=== PATIENT | female | born 1945 | race Caucasian/White ===

== ENCOUNTER → 2017-07-12 | Outpatient (CLI) | payer MEDICARE ==
--- NOTE | 2017-07-12 12:13 | US ---
EXAMINATION TYPE: US abdomen complete DATE OF EXAM: 07/12/2017 COMPARISON: NONE CLINICAL HISTORY: K81.0 Acute Cholecystitis. Cramping-pelvic, some nausea EXAM MEASUREMENTS: Liver Length: 15.4 cm Gallbladder Wall: 0.2 cm CBD: 0.5 cm Spleen: 8.6 cm Right Kidney: 10.5 x 3.9 x 4.8 cm Left Kidney: 9.3 x 3.4 x 4.8 cm Pancreas: wnl Liver: intercostal imaging due to bowel gas, wnl Gallbladder: wnl Evidence for sonographic Rdz's sign: no CBD: wnl Spleen: wnl Right Kidney: wnl Left Kidney: wnl Upper IVC: wnl Abd Aorta: wnl IMPRESSION: 1. Abdomen ultrasound as visualized is unremarkable.
== END | disposition home or self-care (01) ==
LOC: RADUSWWP 10:52
PROVIDERS: ATTEND Family Medicine
DX: K81.0 Acute cholecystitis (principal)
CPT/HCPCS: 76700

== ENCOUNTER 2017-07-21 11:42 | Emergency (ER) | payer MEDICARE ==
[2017-07-21 11:54] VITALS: RESP 18
[2017-07-21] MEDS ORDERED: ONDANSETRON 4 MG/2 ML VIAL IVP STA (12:12)
[2017-07-21] MEDS ORDERED: RX INFO: IV CONTRAST WAS GIVEN 1 EACH MISC MISCELLANE PRN (12:12)
[2017-07-21] MEDS ORDERED: SODIUM CHLORIDE 0.9% 1,000 ML IV STA (12:12)
[2017-07-21] MEDS ORDERED: MORPHINE SULFATE 2 MG/ML SYRINGE IVP STA (12:12)
--- NOTE | 2017-07-21 12:22 | ED ---
Abdominal Pain HPI - General Chief Complaint: Abdominal Pain Stated Complaint: Stomach cramping/nausea Time Seen by Provider: 07/21/17 11:56 Source: patient, RN notes reviewed, old records reviewed Mode of arrival: ambulatory Limitations: no limitations - History of Present Illness Initial Comments: Is a 71-year-old feel presenting to emergency Department chief complaint of 1 month of intermittent lower abdominal cramping, mainly right side. Patient reports that her primary care provider thinks is related to her gallbladder. She is oriented ultrasound which shows no evidence of stones. She reports that she had some blood work which showed some mildly elevated liver enzymes. Patient is supposed to have a HIDA scan. She also relates that she is going to have a colonoscopy in 9 days for further evaluation. Patient states that she's had no diarrhea, and has had very soft bowel movements. Patient reports she has a history of achalasia had multiple surgeries on her esophagus help dilate the esophageal sphincter. Patient states that she has a soft food and liquid diet. Denies any specific nausea or vomiting. States that she's had no fever or chill that she is aware. - Related Data Home Medications Medication Instructions Recorded Confirmed ALPRAZolam [Xanax] 0.5 mg PO HS 01/07/15 07/21/17 Escitalopram [Lexapro] 10 mg PO DAILY 01/07/15 07/21/17 Thyroid, Pork [[place] Thyroid] 30 mg PO DAILY 01/07/15 07/21/17 cycloSPORINE 0.05% OPHTH SOLN 1 applicator BOTH EYES Q12H 01/07/15 07/21/17 [Restasis 0.05% Ophth Soln] Dicyclomine [Bentyl] 10 mg PO AC-TID 07/21/17 07/21/17 Omeprazole 20 mg PO HS 07/21/17 07/21/17 Allergies Allergy/AdvReac Type Severity Reaction Status Date / Time adhesive AdvReac Unknown RED, Verified 07/21/17 12:20 IRRITATED SKIN Review of Systems ROS Statement: Those systems with pertinent positive or pertinent negative responses have been documented in the HPI. ROS Other: All systems not noted in ROS Statement are negative. Past Medical History Past Medical History: Asthma, Fibromyalgia, Osteoarthritis (OA), Thyroid Disorder Additional Past Medical History / Comment(s): HX OF SKIN CANCER, LOW BLOODPRESSURE WITH OCCASIONAL DIZZINESS UPON STANDING, HX OF ASTHMA(NO PROBLEM NOW), ACHALASIA OF ESOPHAGUS-SLEEPS WTIH THE HOB ELEVATED AND LIQUID MEALS ONLY. SJOGRENS SYNDROME , BACK PAIN. History of Any Multi-Drug Resistant Organisms: None Reported Past Surgical History: Breast Surgery, Tubal Ligation Additional Past Surgical History / Comment(s): CYST RT BREAST, ACHALASIA OF ESOPHAGUS SURGERY ON SPHINCTER. Past Anesthesia/Blood Transfusion Reactions: No Reported Reaction Additional Past Anesthesia/Blood Transfusion Reaction / Comment(s): PT STATES DUE TO ACHALASIA OF ESOPHAGUS -DR SAID HER HEAD WOULD BE ELEVATED DURING SURGERY. Past Psychological History: Depression Smoking Status: Never smoker Past Alcohol Use History: None Reported Past Drug Use History: None Reported - Past Family History Mother Family Medical History: Deep Vein Thrombosis (DVT) Brother(s) Family Medical History: Deep Vein Thrombosis (DVT) General Exam - General Exam Comments Initial Comments: This is a 71-year-old female. No acute distress. Limitations: no limitations General appearance: alert, in no apparent distress Head exam: Present: atraumatic, normocephalic, normal inspection Eye exam: Present: normal appearance, PERRL, EOMI. Absent: scleral icterus, conjunctival injection, periorbital swelling ENT exam: Present: normal exam, mucous membranes moist Neck exam: Present: normal inspection. Absent: tenderness, meningismus, lymphadenopathy Respiratory exam: Present: normal lung sounds bilaterally. Absent: respiratory distress, wheezes, rales, rhonchi, stridor Cardiovascular Exam: Present: regular rate, normal rhythm, normal heart sounds. Absent: systolic murmur, diastolic murmur, rubs, gallop, clicks GI/Abdominal exam: Present: soft, tenderness (RLQ tenderness), normal bowel sounds. Absent: distended, guarding, rebound, rigid Extremities exam: Present: normal inspection, full ROM, normal capillary refill. Absent: tenderness, pedal edema, joint swelling, calf tenderness Back exam: Present: normal inspection Neurological exam: Present: alert, oriented X3, CN II-XII intact Psychiatric exam: Present: normal affect, normal mood Skin exam: Present: warm, dry, intact, normal color. Absent: rash Course Vital Signs 07/21/17 11:51 Temperature 97.9 F Pulse Rate 75 Respiratory 18 Rate Blood Pressure 105/54 O2 Sat by Pulse 96 Oximetry Medical Decision Making - Medical Decision Making 2-year-old female chief complaint of intermittent right lower down quadrant abdominal pain. - Lab Data Result diagrams: 07/21/17 12:34 07/21/17 12:34 Lab Results 07/21/17 07/21/17 07/21/17 Range/Units 12:34 12:34 12:34 WBC 7.3 (3.8-10.6) k/uL RBC 4.91 (3.80-5.40) m/uL Hgb 14.2 (11.4-16.0) gm/dL Hct 41.4 (34.0-46.0) % MCV 84.2 (80.0-100.0) fL MCH 28.9 (25.0-35.0) pg MCHC 34.3 (31.0-37.0) g/dL RDW 13.1 (11.5-15.5) % Plt Count 339 (150-450) k/uL Neutrophils % 69 % Lymphocytes % 19 % Monocytes % 6 % Eosinophils % 2 % Basophils % 1 % Neutrophils # 5.0 (1.3-7.7) k/uL Lymphocytes # 1.4 (1.0-4.8) k/uL Monocytes # 0.4 (0-1.0) k/uL Eosinophils # 0.2 (0-0.7) k/uL Basophils # 0.1 (0-0.2) k/uL PT 10.5 (9.0-12.0) sec INR 1.0 (<1.2) APTT 23.6 (22.0-30.0) sec Sodium 142 (137-145) mmol/L Potassium 4.4 (3.5-5.1) mmol/L Chloride 105 (98-107) mmol/L Carbon Dioxide 27 (22-30) mmol/L Anion Gap 10 mmol/L BUN 21 H (7-17) mg/dL Creatinine 0.87 (0.52-1.04) mg/dL Est GFR (MDRD) Af Amer >60 (>60 ml/min/1.73 sqM) Est GFR (MDRD) Non-Af >60 (>60 ml/min/1.73 sqM) Glucose 87 (74-99) mg/dL Plasma Lactic Acid Thanh (0.7-2.0) mmol/L Calcium 9.4 (8.4-10.2) mg/dL Total Bilirubin 0.3 (0.2-1.3) mg/dL AST 28 (14-36) U/L ALT 30 (9-52) U/L Alkaline Phosphatase 113 (38-126) U/L Total Protein 6.5 (6.3-8.2) g/dL Albumin 3.8 (3.5-5.0) g/dL Amylase 39 (30-110) U/L Lipase 126 (23-300) U/L Urine Color Urine Appearance (Clear) Urine pH (5.0-8.0) Ur Specific Plush (1.001-1.035) Urine Protein (Negative) Urine Glucose (UA) (Negative) Urine Ketones (Negative) Urine Blood (Negative) Urine Nitrite (Negative) Urine Bilirubin (Negative) Urine Urobilinogen (<2.0) mg/dL Ur Leukocyte Esterase (Negative) 07/21/17 07/21/17 Range/Units 12:34 13:10 WBC (3.8-10.6) k/uL RBC (3.80-5.40) m/uL Hgb (11.4-16.0) gm/dL Hct (34.0-46.0) % MCV (80.0-100.0) fL MCH (25.0-35.0) pg MCHC (31.0-37.0) g/dL RDW (11.5-15.5) % Plt Count (150-450) k/uL Neutrophils % % Lymphocytes % % Monocytes % % Eosinophils % % Basophils % % Neutrophils # (1.3-7.7) k/uL Lymphocytes # (1.0-4.8) k/uL Monocytes # (0-1.0) k/uL Eosinophils # (0-0.7) k/uL Basophils # (0-0.2) k/uL PT (9.0-12.0) sec INR (<1.2) APTT (22.0-30.0) sec Sodium (137-145) mmol/L Potassium (3.5-5.1) mmol/L Chloride (98-107) mmol/L Carbon Dioxide (22-30) mmol/L Anion Gap mmol/L BUN (7-17) mg/dL Creatinine (0.52-1.04) mg/dL Est GFR (MDRD) Af Amer (>60 ml/min/1.73 sqM) Est GFR (MDRD) Non-Af (>60 ml/min/1.73 sqM) Glucose (74-99) mg/dL Plasma Lactic Acid Thanh 1.5 (0.7-2.0) mmol/L Calcium (8.4-10.2) mg/dL Total Bilirubin (0.2-1.3) mg/dL AST (14-36) U/L ALT (9-52) U/L Alkaline Phosphatase (38-126) U/L Total Protein (6.3-8.2) g/dL Albumin (3.5-5.0) g/dL Amylase (30-110) U/L Lipase (23-300) U/L Urine Color Yellow Urine Appearance Clear (Clear) Urine pH 7.0 (5.0-8.0) Ur Specific Plush 1.034 (1.001-1.035) Urine Protein Negative (Negative) Urine Glucose (UA) Negative (Negative) Urine Ketones Negative (Negative) Urine Blood Negative (Negative) Urine Nitrite Negative (Negative) Urine Bilirubin Negative (Negative) Urine Urobilinogen <2.0 (<2.0) mg/dL Ur Leukocyte Esterase Negative (Negative) - Radiology Data Radiology results: report reviewed CT abdomen and pelvis with contrast show some colonic diverticula most prominent sigmoid colon without evidence of acute diverticulitis. There is a 5 cm right adnexal or ovarian mass. This is an abnormal finding in a postmenopausal female. Neoplasm cannot be excluded. Further investigation with a nonemergent ultrasound follow-up is advised. Dilated debris-filled esophagus partially imaged could reflect products of achalasia. Other etiologies are not excluded. This was read by Dr. schuler. Disposition Clinical Impression: Ovarian mass, right, Abdominal cramping Disposition: HOME SELF-CARE Condition: Good Instructions: Abdominal Pain (ED), Ovarian Cyst (ED) Additional Instructions: She is advised to continue to take your Bentyl. Patient is to complete her colonoscopy in the next 9 days. Follow-up with her primary care provider or OB/ [facility] in regards to the right sided ovarian mass. Patient needs to have this closely followed up with. Return to the emergency department if any alarming signs or symptoms occur. Referrals: Wiley Sinha DO [Primary Care Provider] - 1-2 days Time of Disposition: 14:28
[2017-07-21 12:46] LABS: Basophils # (A) 0.1 k/uL (0-0.2); Basophils % (A) 1 %; CH 27.5; CHCM 32.8; Eosinophils # (A) 0.2 k/uL (0-0.7); Eosinophils % (A) 2 %; HCT 41.4 % (34.0-46.0); HDW 2.57; HGB 14.2 gm/dL (11.4-16.0); Luc # (Auto) 0.15; Luc % (Auto) 2; Lymphocytes # (A) 1.4 k/uL (1.0-4.8); Lymphocytes % (A) 19 %; MCH 28.9 pg (25.0-35.0); MCHC 34.3 g/dL (31.0-37.0); MCV 84.2 fL (80.0-100.0); Mean Platelet Volume 6.9; Monocytes # (A) 0.4 k/uL (0-1.0); Monocytes % (A) 6 %; Neutrophils % (A) 69 %; RBC 4.91 m/uL (3.80-5.40); RDW 13.1 % (11.5-15.5); WBC 7.3 k/uL (3.8-10.6); WBC (Perox) 7.24
[2017-07-21 12:56] LABS: Partial Thromboplastin Time 23.6 sec (22.0-30.0); Prothrombin Time 10.5 sec (9.0-12.0)
[2017-07-21 13:02] LABS: ALT 30 U/L (9-52); AST 28 U/L (14-36); Alkaline Phosphatase 113 U/L (38-126); Amylase 39 U/L (30-110); Anion Gap 10 mmol/L; Blood Urea Nitrogen 21 mg/dL (7-17); Calcium 9.4 mg/dL (8.4-10.2); Carbon Dioxide 27 mmol/L (22-30); Chloride 105 mmol/L (98-107); Glucose 87 mg/dL (74-99); Non-African American GFR(MDRD) >60 (>60 ml/min/1.73 sqM); Potassium 4.4 mmol/L (3.5-5.1); Sodium 142 mmol/L (137-145); Total Bilirubin 0.3 mg/dL (0.2-1.3); Total Protein 6.5 g/dL (6.3-8.2)
--- NOTE | 2017-07-21 13:29 | CT ---
EXAMINATION TYPE: CT abdomen pelvis w con DATE OF EXAM: 07/21/2017 HISTORY: Patient complains of generalized pelvic pain. CT DLP: 1161mGycm Automated Exposure Control for Dose Reduction was Utilized. CONTRAST: CT scan of the abdomen and pelvis is performed without oral but with IV Contrast, patient injected wi th 100 mL of Omnipaque 300. COMPARISON: Complete abdominal ultrasound 9 days ago.. FINDINGS: LUNG BASES: No significant abnormality is appreciated. LIVER/GB: Liver is hypodense relative to spleen suggesting fatty infiltration. PANCREAS: No significant abnormality is seen. SPLEEN: No significant abnormality is seen. ADRENALS: No significant abnormality is seen. KIDNEYS: No significant abnormality is seen. BOWEL: There is partial visualization of debris filled dilated distal esophagus. There is small size hiatal hernia. There is no suspicious small or large bowel dilatation. Occasional colonic diverticula are present without CT evidence for acute diverticulitis. UTERUS/ADNEXA: Uterus is anteverted in shape and within normal limits in size. In the right pelvis or ovary there is 5.0 x 3.4 cm oval hypodense lesion on axial image 68, this is abnormal finding in pos tmenopausal female and follow-up is advised. Remnant left ovary is normal in size near axial image 61 . LYMPH NODES: No greater than 1cm abdominal or pelvic lymph nodes are appreciated. OSSEOUS STRUCTURES: No significant abnormality is seen. OTHER: No significant additional abnormality is seen. IMPRESSION: 1. Some colonic diverticula most prominent at sigmoid colon without CT evidence for acute diverticuli tis. 2. There is 5.0 cm right adnexal or ovarian mass, this is abnormal finding in postmenopausal female, neoplasm cannot be excluded. Further investigation with nonemergent ultrasound follow-up is advised. 3. Dilated debris-filled esophagus partially imaged could reflect product of achalasia, other etiolog ies are not excluded. Clinical correlation advised.
[2017-07-21 13:54] LABS: Appearance,Urine Clear (Clear); Bilirubin,Urine Negative (Negative); Glucose,Urine (UA) Negative (Negative); Ketones,Urine Negative (Negative); Leukocyte Esterase,Urine Negative (Negative); Nitrite,Urine Negative (Negative); Protein,Urine Negative (Negative); Specific Gravity,Urine 1.034 (1.001-1.035); UA Billing (MACRO vs. MICRO) CHEM; Urobilinogen,Urine <2.0 mg/dL (<2.0)
[2017-07-21 14:52] VITALS: BP 100/53; PULSE 51; TEMP 98.4
== END 2017-07-21 14:52 | disposition home or self-care (01) ==
LOC: EC 11:42
DX: N83.9 Noninflammatory disorder of ovary, fallopian tube and broad ligament, unspecified (principal); E07.9 Disorder of thyroid, unspecified; F32.9 Major depressive disorder, single episode, unspecified; K22.0 Achalasia of cardia; Z85.828 Personal history of other malignant neoplasm of skin; Z98.51 Tubal ligation status; Z79.899 Other long term (current) drug therapy; Z91.048 Other nonmedicinal substance allergy status
CPT/HCPCS: 36415; 80053; 86304; 82150; 83605; 83690; 85025; 85610; 85730; 81003; 87040; 74177; 99284; 96374; 96375; 96361 ×2; J2405; J2270; Q9967

== ENCOUNTER 2017-07-29 10:55 | Day surgery (SDC) | payer MEDICARE ==
[2017-07-23 15:00] VITALS: BMI 31.4
[~2017-07-29 10:55] MED LIST: LACTATED RINGERS 1,000 ML IV SCH; LIDOCAINE 1% 20 ML VIAL (10MG/ML) FOR IV START INTRADERMA PRN
[2017-07-29 12:01] VITALS: TEMP 97.7
[2017-07-29] MEDS ORDERED: PROPOFOL 10 MG/ML 20 ML VIAL IV ONE (12:42)
[2017-07-29] MEDS ORDERED: LIDOCAINE 1% INJ 10MG/ML (20 ML MDV) ONE (12:42)
--- NOTE | 2017-07-29 13:08 | P.PCN ---
Date of Procedure: 07/29/17 Preoperative Diagnosis: Postoperative Diagnosis: Procedure(s) Performed: Brief history: Patient is a pleasant 71-year-old white female, scheduled for an elective upper endoscopy as well as colonoscopy as a part of evaluation of progressive dysphagia to solids, lower abdominal pain and change in bowel habits. She was diagnosed with esophageal achalasia in June 2008 and underwent Heller's myotomy at [facility]. In 2011 she developed severe dysphagia and upper endoscopy done by md revealed a tight distal esophageal stricture which was dilated. She was subsequently referred to [facility] and underwent 2 more upper endoscopy with dilation without much help. She was subsequent is seen by thoracic surgeon recommended no esophagectomy as she is able to maintain her nutrition. Procedure performed: Esophagogastroduodenoscopy Colonoscopy with biopsy Preoperative diagnosis: Dysphagia/history of esophageal achalasia and distal esophageal stricture Change in bowel habits and lower abdominal pain Anesthesia: MAC Procedure: After informed consent was obtained from the patient was brought into the endoscopy unit and IV sedation was administered by anesthesia under continuous monitoring. Initially upper endoscopy was done. The Olympus GF 160 video endoscope was inserted inserted into the mouth and esophagus intubated without any difficulty and was gradually advanced into the distal esophagus. There was a fair amount of liquid in the dilated esophagus and this was aspirated. Subsequently the scope was advanced into the stomach stomach and duodenum and carefully examined. The bulb and second part of the duodenum appeared normal. The scope was then withdrawn into the stomach adequately insufflated with air and upon careful examination the antrum and body, cardia and fundus appeared normal. The scope was then withdrawn into the esophagus. The GE junction was located at 40 cm to the incisors. It appeared slightly narrowed but no tight stricture identified. The entire length of esophagus had a sigmoid shape to it and very tortuous and dilated.. Patient tolerated the procedure well. At this time the patient continued to remain sedation. Initial digital rectal examination was normal. Olympus CF 160 video colonoscope was then inserted into the rectum and gradually advanced to the cecum without any difficulty. Careful examination was performed as the scope was gradually being withdrawn. The prep was excellent. The cecum, ascending colon, transverse colon, descending colon, sigmoid colon and rectum appeared normal. and biopsies were done from the descending colon to rule out microscopic/collagenous colitis. Retroflexion was performed in the rectum and no lesions were noted. Patient tolerated the procedure well. Impression: 1. Upper endoscopy revealed dilated fluid-filled esophagus with distal esophageal narrowing but no tight stricture. 2 Colonoscopy revealed small internal hemorrhoids but no evidence of colitis or colorectal neoplasia. Recommendations: Findings of this examination were discussed with the patient as well as her family. She was advised to follow with the biopsy results. If she has worsening symptoms she was advised to follow up in office. Implants: Indications for Procedure: Operative Findings: Description of Procedure:
[2017-07-29 13:23] VITALS: PULSE 66; RESP 18
[2017-07-29 13:33] VITALS: BP 96/63
== END 2017-07-29 14:10 | disposition home or self-care (01) ==
LOC: ORWHC2ENDO 10:55
PROVIDERS: ATTEND Internal Medicine Gastroenterology
DX: K21.9 Gastro-esophageal reflux disease without esophagitis (principal); R19.7 Diarrhea, unspecified; K22.2 Esophageal obstruction; K64.8 Other hemorrhoids; E07.9 Disorder of thyroid, unspecified; M35.00 Sjogren syndrome, unspecified; M79.7 Fibromyalgia; Z88.8 Allergy status to other drugs, medicaments and biological substances; Z79.899 Other long term (current) drug therapy
CPT/HCPCS: 88305; 45380; 43235; J2001; J2704

== ENCOUNTER → 2017-08-09 | Outpatient (CLI) | payer MEDICARE ==
--- NOTE | 2017-08-10 08:28 | NM ---
Nuclear medicine hepatobiliary scan. HISTORY: Pain. DOSAGE: The patient received 8 ounces of ensure plus and 6 mCi of Technetium 99m Choletec. FINDINGS: There is normal hepatic extraction. The gallbladder is seen by 30 minutes. There is bilia ry to bowel clearance by 30 minutes. Ejection fraction is 72%. IMPRESSION: 1. Normal hepatobiliary exam
== END | disposition home or self-care (01) ==
LOC: RADNMMAIN 14:40
PROVIDERS: ATTEND Family Medicine
DX: K81.0 Acute cholecystitis (principal)
CPT/HCPCS: 78226; A9537

== ENCOUNTER → 2017-09-10 | Outpatient (CLI) | payer MEDICARE ==
--- NOTE | 2017-09-11 21:54 | US ---
EXAMINATION TYPE: US pelvis complete transvag DATE OF EXAM: 09/10/2017 COMPARISON: CT 2017 CLINICAL HISTORY: Rt ovary mass N83.201. TECHNIQUE: Transvaginal (TV) and Transabdominal (TA) Date of LMP: about 20 years ago EXAM MEASUREMENTS: Uterus: 7.0 x 2.9 x 3.4 cm Endometrial Stripe: 0.4 cm Right Ovary: 4.4 x 4.8 x 4.0 cm Left Ovary: 1.9 x 1.4 x 1.5 cm 1. Uterus: Anteverted wnl 2. Endometrium: wnl 3. Right Ovary: Cystic area visualized measuring 4.2 x 2.7 x 3.0 cm 4. Left Ovary: wnl 5. Bilateral Adnexa: wnl 6. Posterior cul-de-sac: wnl IMPRESSION: 1. Right ovarian cyst. Follow-up is recommended.
== END ==
LOC: RADUSWWP 15:00
PROVIDERS: ATTEND Family Medicine
DX: N83.201 Unspecified ovarian cyst, right side (principal)
CPT/HCPCS: 76830; 76856; 93976

== ENCOUNTER 2019-05-04 18:13 | Emergency (ER) | payer MEDICARE ==
[2019-05-04 18:17] VITALS: TEMP 97.7
[2019-05-04] MEDS ORDERED: HYDROcodone/APAP 5-325MG 1 EACH TAB PO STA (19:07)
--- NOTE | 2019-05-04 19:12 | ED ---
General Adult HPI - General Chief complaint: Fall Stated complaint: Fall, wrist injury Time Seen by Provider: 05/04/19 18:48 Source: patient, RN notes reviewed Mode of arrival: wheelchair Limitations: no limitations - History of Present Illness Initial comments: 73-year-old female presents to the emergency determine for a chief complaint of mechanical fall. Patient states she recently had her driveway edged and they did it differently than normal. States she was walking when the side of her right foot was caught on it. Patient states she then fell forward onto her right hand and bilateral knees. Patient states she was ambulatory afterwards but did have some right knee pain. Patients main complaint is right wrist pain. Patient is not on any blood thinners. Patient did not hit her head. Denies any neck or back pain. Denies hip pain. Patient denies any dizziness preceding this fall, states it was purely secondary to tripping. Patient has no other complaints at this time including shortness of breath, chest pain, abdominal pain, nausea or vomiting, headache, or visual changes. - Related Data Home Medications Medication Instructions Recorded Confirmed ALPRAZolam [Xanax] 0.5 mg PO HS 01/07/15 07/29/17 Escitalopram [Lexapro] 10 mg PO DAILY 01/07/15 07/29/17 Thyroid, Pork [[place] Thyroid] 30 mg PO DAILY 01/07/15 07/29/17 cycloSPORINE 0.05% OPHTH SOLN 1 applicator BOTH EYES Q12H 01/07/15 07/29/17 [Restasis 0.05% Ophth Soln] Dicyclomine [Bentyl] 10 mg PO AC-TID 07/21/17 07/29/17 Omeprazole 20 mg PO HS 07/21/17 07/29/17 Previous Rx's Medication Instructions Recorded HYDROcodone/APAP 5-325MG [[place] 1 tab PO Q6HR PRN #11 tab 05/04/19 5-325] Allergies Allergy/AdvReac Type Severity Reaction Status Date / Time adhesive AdvReac Unknown RED, Verified 05/04/19 18:17 IRRITATED SKIN Review of Systems ROS Statement: Those systems with pertinent positive or pertinent negative responses have been documented in the HPI. ROS Other: All systems not noted in ROS Statement are negative. Past Medical History Past Medical History: Asthma, Fibromyalgia, Osteoarthritis (OA), Thyroid Disorder Additional Past Medical History / Comment(s): HX OF SKIN CANCER, LOW BLOODPRESSURE WITH OCCASIONAL DIZZINESS UPON STANDING, HX OF ASTHMA(NO PROBLEM NOW), ACHALASIA OF ESOPHAGUS-SLEEPS WTIH THE HOB ELEVATED AND LIQUID MEALS ONLY. SJOGRENS SYNDROME , BACK PAIN. History of Any Multi-Drug Resistant Organisms: None Reported Past Surgical History: Breast Surgery, Tubal Ligation Additional Past Surgical History / Comment(s): CYST RT BREAST, ACHALASIA OF ESOPHAGUS SURGERY ON SPHINCTER. Past Anesthesia/Blood Transfusion Reactions: No Reported Reaction Additional Past Anesthesia/Blood Transfusion Reaction / Comment(s): PT STATES DUE TO ACHALASIA OF ESOPHAGUS -DR SAID HER HEAD WOULD BE ELEVATED DURING SURGERY. Past Psychological History: Depression Smoking Status: Never smoker Past Alcohol Use History: None Reported Past Drug Use History: None Reported - Past Family History Mother Family Medical History: Deep Vein Thrombosis (DVT) Brother(s) Family Medical History: Deep Vein Thrombosis (DVT) General Exam - General Exam Comments Initial Comments: Right wrist: Range of motion limited due to pain. There is some edema noted to the dorsal right wrist. Radial pulses 2+. Patient is able to move all fingers. Capillary refill less than 2 seconds. Sensation intact. No significant erythema noted. Right knee: Patient has 90 flexion of the right knee. She does have some contusion noted to the anterior aspect of the right knee with mild tenderness. No tenderness to the posterior knee or calf. DP pulses 2+ and equal bilaterally. Capillary refill is less than 2 seconds. No pain of the hip or ankle. Limitations: no limitations General appearance: alert, in no apparent distress Head exam: Present: atraumatic, normocephalic, normal inspection Eye exam: Present: normal appearance, PERRL, EOMI. Absent: scleral icterus, conjunctival injection, periorbital swelling ENT exam: Present: normal exam, normal oropharynx, mucous membranes moist, TM's normal bilaterally, normal external ear exam Neck exam: Present: normal inspection, full ROM. Absent: tenderness, meningismus, lymphadenopathy Respiratory exam: Present: normal lung sounds bilaterally. Absent: respiratory distress, wheezes, rales, rhonchi, stridor Cardiovascular Exam: Present: regular rate, normal rhythm, normal heart sounds. Absent: systolic murmur, diastolic murmur, rubs, gallop, clicks GI/Abdominal exam: Present: soft, normal bowel sounds. Absent: distended, tenderness, guarding, rebound, rigid Back exam: Absent: CVA tenderness (R), CVA tenderness (L), vertebral tenderness Neurological exam: Present: alert, oriented X3, CN II-XII intact Psychiatric exam: Present: normal affect, normal mood Course Vital Signs 05/04/19 18:16 Temperature 97.7 F Pulse Rate 77 Respiratory 18 Rate Blood Pressure 116/57 O2 Sat by Pulse 100 Oximetry Procedures - Orthopedic Splinting/Casting Injury #1 Side: right Upper Extremity Injury Location: short arm Upper Extremity Immobilizer: volar splint Additional Comments: NV intact after splint application Medical Decision Making - Medical Decision Making 73-year-old female presents to the emergency department for mechanical fall. Patient is complaining of right knee and wrist pain. Patient did not hit her head. No loss of consciousness. Fall was purely mechanical. Wrist x-ray did show a mildly impacted distal radius fracture. Volar splint was applied. Neurovascular status intact before and after splint application. Attempted to extend wrist somewhat for splint, splinted as tolerated. X-ray of the right knee shows soft tissue swelling, no fractures. Patient is ambulatory to the bathroom on the right knee. Patient given pain medication for home. Patient does have a friend that will stay with her tonight. She will follow-up with orthopedics in one to 2 days. She will return here if she has any worsening symptoms. Disposition Clinical Impression: Radius fracture, Knee contusion Disposition: HOME SELF-CARE Condition: Good Instructions (If sedation given, give patient instructions): Wrist Fracture in Adults (ED), Knee Pain (ED) Additional Instructions: Please take Tylenol 3 tonight for pain. You may take [place] once filled but do not take [place] and Tylenol 3 together. Follow-up with orthopedics in one to 2 days. Rest ice and elevate the right wrist and knee and apply ice. Return here if you have any worsening symptoms. Prescriptions: HYDROcodone/APAP 5-325MG [[place] 5-325] 1 tab PO Q6HR PRN #11 tab PRN Reason: Pain Is patient prescribed a controlled substance at d/c from ED?: No Referrals: Wiley Sinha DO [Primary Care Provider] - 1-2 days Daniel Bucio DO [Medical Doctor] - 1-2 days Time of Disposition: 20:31
--- NOTE | 2019-05-04 19:25 | XR ---
EXAMINATION TYPE: XR knee 4V RT DATE OF EXAM: 05/04/2019 COMPARISON: NONE HISTORY: Pain TECHNIQUE: 4 views FINDINGS: The joint spaces are fairly normal. I see no fracture nor dislocation. There is soft tissue swelling inferior to the patella on the lateral view. There is mild spurring of the patella. IMPRESSION: Soft tissue swelling. No fracture.
--- NOTE | 2019-05-04 19:31 | XR ---
EXAMINATION TYPE: XR wrist complete RT DATE OF EXAM: 05/04/2019 COMPARISON: NONE HISTORY: Pain TECHNIQUE: 3 views FINDINGS: There is impacted transverse fracture distal radial metaphysis. There is no dislocation. Th ere is soft tissue swelling around the wrist joint. Carpal bones are intact. Distal ulna appears inta ct. IMPRESSION: Mildly impacted distal radius fracture.
[2019-05-04] MEDS ORDERED: ACET/COD 300 MG/30 MG STARTER PACK 6 TAB BTL PO STA (20:32)
[2019-05-04 20:41] VITALS: BP 128/59; PULSE 75; RESP 16
== END 2019-05-04 20:54 | disposition home or self-care (01) ==
LOC: EC 18:13
DX: S52.501A Unspecified fracture of the lower end of right radius, initial encounter for closed fracture (principal); S80.02XA Contusion of left knee, initial encounter; S80.01XA Contusion of right knee, initial encounter; F32.9 Major depressive disorder, single episode, unspecified; Z79.899 Other long term (current) drug therapy; E07.9 Disorder of thyroid, unspecified; Z91.048 Other nonmedicinal substance allergy status; Z85.828 Personal history of other malignant neoplasm of skin; W01.0XXA Fall on same level from slipping, tripping and stumbling without subsequent striking against object, initial encounter; Y93.01 Activity, walking, marching and hiking; Y92.009 Unspecified place in unspecified non-institutional (private) residence as the place of occurrence of the external cause
CPT/HCPCS: 29125; 99283

== ENCOUNTER → 2019-05-08 | Outpatient (CLI) | payer MEDICARE ==
[2019-05-08 14:18] LABS: Basophils % (A) 0 %; Eosinophils # (A) 0.1 k/uL (0-0.7); Eosinophils % (A) 1 %; HCT 44.4 % (34.0-46.0); HGB 14.1 gm/dL (11.4-16.0); Lymphocytes # (A) 1.5 k/uL (1.0-4.8); Lymphocytes % (A) 16 %; MCH 27.7 pg (25.0-35.0); MCHC 31.8 g/dL (31.0-37.0); Mean Platelet Volume 8.1; Monocytes # (A) 0.5 k/uL (0-1.0); Monocytes % (A) 6 %; Neutrophils % (A) 76 %; Platelet Count 373 k/uL (150-450); RDW 13.4 % (11.5-15.5); WBC 9.2 k/uL (3.8-10.6)
== END | disposition home or self-care (01) ==
LOC: LABPAT 12:02
PROVIDERS: ATTEND Orthopaedic Surgery
DX: Z01.818 Encounter for other preprocedural examination (principal); S52.571D Other intraarticular fracture of lower end of right radius, subsequent encounter for closed fracture with routine healing; Z01.812 Encounter for preprocedural laboratory examination
CPT/HCPCS: 36415; 80051; 85025; 93005

== ENCOUNTER 2019-05-10 10:59 | Inpatient (IN) | payer MEDICARE ==
--- NOTE | 2019-05-08 18:07 | HP ---
HISTORY AND PHYSICAL CHIEF COMPLAINT: Right wrist pain. HISTORY OF PRESENT ILLNESS: The patient is a 73-year-old [id number] retired female who presents with right wrist pain after an injury on 05/04/2019. She stepped over the edge of her driveway and fell on her right wrist. She had no loss of consciousness. Initially she was seen in the emergency room and was placed in a splint. She denies previous injury. PAST MEDICAL HISTORY: Past medical history is significant for: 1. Reflux disease. 2. Depression. 3. Hypothyroidism. 4. Eye disease. PAST SURGICAL HISTORY: Past surgical history is significant for breast surgery and esophageal surgery. CURRENT MEDICATIONS: 1. Synthroid. 2. Lexapro. 3. Restasis. 4. Xanax. ALLERGIES: SHE DENIES DRUG ALLERGIES. FAMILY HISTORY: Significant for cancer. SOCIAL HISTORY: Negative for current tobacco or alcohol use. REVIEW OF SYSTEMS: Sixteen-point review of systems otherwise reviewed and is noncontributory. PHYSICAL EXAMINATION: The patient is approximately 5 feet 6 inches, 195 pounds of endomorphic habitus. HEENT exam is nonfocal. NECK: Supple. She is nontender about the right shoulder and elbow. On examination of her right wrist, she has moderate dorsal swelling. Skin is intact. She has dorsal angulation. She is tender over the distal radius. Light touch is distally intact. INVESTIGATIONS: X-rays of the right wrist obtained in the office show an intra-articular distal radius fracture with moderate dorsal angulation and comminution. IMPRESSION: Right intra-articular distal radius fracture - angulated. RECOMMENDATIONS: I talked to the patient at length regarding her condition along with treatment options. After a thorough discussion, she opts to proceed with surgery. We will plan to proceed with open reduction and internal fixation of her right distal radius fracture. We will likely keep the patient for a 23-hour hold postoperatively. Risks and benefits were discussed at length in layman's terms. MMODL / IJN: [id number] /
[~2019-05-10 10:59] MED LIST changes: +HYDROmorphone 0.5 MG/0.5 ML SYRINGE IVP PRN; -LACTATED RINGERS 1,000 ML IV SCH; +ONDANSETRON 4 MG/2 ML VIAL IVP ONE; +ceFAZolin IN SWFI 2 GM/20 ML SYRINGE IVP ONE
[2019-05-10] MEDS: LACTATED RINGERS 1,000 ML IV SCH (11:29)
[2019-05-10] MEDS ORDERED: fentaNYL (PF) 50 MCG/ML 2 ML AMP IVP ONE (11:53)
[2019-05-10] MEDS ORDERED: MIDAZOLAM (PF) 2 MG/2 ML VIAL IVP ONE (11:53)
[2019-05-10] MEDS ORDERED: GLYCOPYRROLATE 0.2 MG/ML 2 ML VIAL ONE (13:21)
[2019-05-10] MEDS ORDERED: KETAMINE 10 MG/ML 20 ML VIAL ONE (13:21)
[2019-05-10] MEDS ORDERED: fentaNYL (PF) 50 MCG/ML 2 ML AMP ONE (13:21)
[2019-05-10] MEDS ORDERED: ROPIVACAINE 5 MG/ML 30 ML VIAL ONE (13:21)
[2019-05-10] MEDS ORDERED: MIDAZOLAM 2 MG/2 ML VIAL ONE (13:21)
--- NOTE | 2019-05-10 14:10 | P.ANPRN ---
Procedure Note - Anesthesia - Nerve Block Performed Right Axillary Single Time Out Performed: Yes Date of Procedure: 05/10/19 Location of Patient Procedure: PreOp Indication: Acute Post-Operative Pain, Requested by physician Specifically requested for management of pain by DrAbdi: Tom Laureano Sedation Type: Sedate with meaningful contact maintained Preparation: Sterile Prep Position: Supine Catheter: None Needle Types: Pajunk Needle Gauge: 20 Technique: Ultrasound Injectate: 0.5% Ropivacaine (see comment for volume) (20cc) Blood Aspirated: No Pain Paresthesia on Injection Noted: No Resistance on Injection: Normal Events: Uneventful and Well Tolerated
[2019-05-10] MEDS ORDERED: LACTATED RINGERS 1,000 ML IV ONE (14:35)
--- NOTE | 2019-05-10 14:56 | P.OP ---
Date of Procedure: 05/10/19 Preoperative Diagnosis: Displaced right intra-articular distal radius fracture Postoperative Diagnosis: Same Procedure(s) Performed: Open reduction and internal fixation right intra-articular distal radius fracture Implants: Arthrex 3 hole narrow 3 hole volar distal radial plate Anesthesia: MAC, regional Surgeon: Tom Laureano Estimated Blood Loss (ml): 5 Pathology: none sent Condition: stable Disposition: PACU Indications for Procedure: The patient is a 73-year-old [id number] female who presents after falling in her driveway injuring her right wrist recently. She was noted to have a closed displaced intra-articular distal radius fracture. A discussion of the risks and benefits of operative intervention versus conservative measures was made with patient. She opted to proceed with surgery. Operative risks to include infection, neurovascular injury, development of blood clots, possible development of nonunion/malunion and need for subsequent procedures was discussed. Informed consent was obtained. Operative Findings: As below Description of Procedure: The patient was brought to the operating room, and after induction of an axillary block by anesthesia the right upper extremity was prepped and draped in normal fashion. The tourniquet was inflated to 250 mmHg. The proposed incision site was outlined with a skin marker in line with the flexor carpi radialis extending from the volar wrist crease proximally 5 cm. The skin was incised sharply. Subcutaneous tissues were divided bluntly. Electrocautery was used for hemostasis. The FCR tendon sheath was then opened. The FCR was retracted ulnarly and the radial artery was retracted radially. The underlying fascia was opened. The contents the carpal canal were bluntly elevated and retracted ulnarly. The pronator quadratus was elevated subperiosteally and the fracture site identified and cleaned of clot and debris. This was then provisionally reduced. A 3 hole narrow volar plate was placed and provisionally held with an olive wire. Alignment was verified with fluoroscopy. A distal K wire was also placed. With the fracture held in reduction, the distal peg holes were then filled with smooth locking pegs of the appropriate length. The proximal holes were filled with 3.5 mm cortical screws of the appropriate length. The proximal row was filled with the appropriate length smooth locking pegs. Final fluoroscopic views to include PA, AP, and elevated a lateral showed adequate reduction of the fracture and the articular surface. The wound was irrigated normal saline. The pronator quadratus was repaired with simple 3-0 Vicryl suture. The subcu tissues reapproximated with simple 3-0 Vicryl sutures. The skin was reapproximated with 4-0 subcuticular Prolene suture. Steri-Strips were applied. The tourniquet was deflated the proximal a 45 minutes total tourniquet time. A sterile dressing was applied in addition to a volar splint. The patient was awoken from sedation and transferred to the recovery room in good condition. Blood loss was estimated 5 mL. No complications were incurred. Sponge and needle counts were correct at the end of the case.
[2019-05-10] MEDS ORDERED: ONDANSETRON 4 MG/2 ML VIAL IVP PRN (15:03)
[2019-05-10] MEDS ORDERED: NALOXONE 0.4 MG/ML 1 ML VIAL IV PRN (15:03)
[2019-05-10] MEDS ORDERED: HYDROcodone/APAP 5-325MG 1 EACH TAB PO PRN (15:03)
--- NOTE | 2019-05-10 15:45 | FL ---
Fluoroscopy HISTORY: Open reduction internal fixation 19 seconds fluoroscopy time supplied to the referring clinician. 2 intraoperative C-arm images docum ent the procedure. See dictated report from orthopedic surgery.
--- NOTE | 2019-05-10 15:54 | XR ---
Limited right wrist HISTORY: Fracture 2 intraoperative C-arm images document the procedure.
[2019-05-10 18:08] VITALS: BMI 31.3
[2019-05-11] MEDS: HYDROcodone/APAP 5-325MG 1 EACH TAB PO PRN ×2 (00:43→06:14)
[2019-05-11] MEDS: LACTATED RINGERS 1,000 ML IV SCH (09:29)
[2019-05-11] MEDS: HYDROmorphone 0.5 MG/0.5 ML SYRINGE IVP PRN ×3 (12:05→22:36)
[2019-05-11] MEDS ORDERED: ACETAMINOPHEN TAB 325 MG TAB PO PRN (12:28)
--- NOTE | 2019-05-11 12:28 | P.PN ---
Subjective Progress Note Date: 05/11/19 Principal diagnosis: Status post ORIF right distal radius fracture Patient evaluated at bedside today. She's having very severe pain involving the right wrist. She has not taken a IV pain medication at this time, I did order that and up her oral medication. She's nervous was going home today due to the pain. She denies any paresthesias involving the hand, chest pain or shortness of breath Objective - Vital Signs Vital signs: Vital Signs Temp 98.5 F 05/11/19 07:00 Pulse 70 05/11/19 07:00 Resp 14 05/11/19 07:00 BP 90/60 05/11/19 07:00 Pulse Ox 93 L 05/11/19 07:00 Intake & Output 05/10/19 05/11/19 05/11/19 18:59 06:59 18:59 Intake Total 1600 296 Output Total 5 Balance 1595 296 Intake: IV 1600 Oral 296 Output: Estimated Blood Loss 5 Other: Voiding Method Toilet # Voids 2 1 - Exam Right upper extremity: Postop splint is in good position and condition, she is able wiggle the fingers with minimal difficulty. Cap refills less than 2 seconds. Sensory exam to light touch both proximal and distal to splint intact Assessment and Plan Plan: Assessment: Postoperative day #1 status post ORIF right distal radius fracture Plan: Pain control, I did add IV pain medication and increase her oral medication Continue icing and elevating Discussing with case picker knee for home care after discharge Discussed with patient the need to work on getting out of bed by herself and ambulating throughout the room We will make patient inpatient at this time, plan for discharge home tomorrow Time with Patient: Less than 30
[2019-05-11] MEDS ORDERED: KETOROLAC 30 MG/ML 1 ML VIAL IVP PRN (12:29)
[2019-05-11] MEDS: HYDROcodone/APAP 7.5-325MG 1 EACH TAB PO PRN ×2 (13:20→19:26)
[2019-05-12] MEDS: HYDROcodone/APAP 7.5-325MG 1 EACH TAB PO PRN ×2 (01:38→08:57)
[2019-05-12] MEDS: LACTATED RINGERS 1,000 ML IV SCH (04:12)
[2019-05-12] MEDS: HYDROmorphone 0.5 MG/0.5 ML SYRINGE IVP PRN (05:33)
[2019-05-12] MEDS ORDERED: THYROID, PORK 30 MG TAB PO SCH (08:00)
[2019-05-12] MEDS ORDERED: ESCITALOPRAM 10 MG TAB PO SCH (09:00)
[2019-05-12 09:26] VITALS: BP 105/56; PULSE 76; RESP 18; TEMP 97.8
--- NOTE | 2019-05-12 10:13 | P.PN ---
Subjective Progress Note Date: 05/12/19 Principal diagnosis: Status post ORIF right distal radius fracture Patient evaluated at bedside today. Pain is better controlled today. She denies any paresthesias involving the hand, chest pain or shortness of breath Objective - Vital Signs Vital signs: Vital Signs Temp 97.8 F 05/12/19 08:15 Pulse 76 05/12/19 08:15 Resp 18 05/12/19 08:15 BP 105/56 05/12/19 08:15 Pulse Ox 95 05/12/19 08:15 Intake & Output 05/11/19 05/12/19 05/12/19 18:59 06:59 18:59 Intake Total 740 160 Balance 740 160 Intake: Oral 740 160 Other: Voiding Method Toilet # Voids 1 2 - Exam Right upper extremity: Postop splint is in good position and condition, she is able wiggle the fingers with minimal difficulty. Cap refills less than 2 seconds. Sensory exam to light touch both proximal and distal to splint intact Assessment and Plan Plan: Assessment: Postoperative day #2 status post ORIF right distal radius fracture Plan: Pain control, plan for discharge on [place] 7.5 mg/325 mg Continue icing and elevating Patient will be discharged home today Time with Patient: Less than 30
--- NOTE | 2019-05-12 10:16 | P.DS ---
Providers Date of admission: 05/10/2019 Expected date of discharge: 05/12/19 Attending physician: Tom Laureano Primary care physician: Wiley Sinha [facility] Course: Date of admission: 05/10/2019 Date of discharge: 05/12/2019 Admission diagnosis: Status post ORIF right distal radius fracture Discharge diagnosis: Same Attending physician: Dr. Laureano Surgical procedures: For reduction internal fixation right distal radius fracture Brief history: Patient is a 73-year-old female who was evaluated in the outpatient setting for a right wrist injury. It was determined that she had a right distal radius fracture. Treatments were discussed with patient, she'll elected to proceed with a surgical fixation of the right distal radius fracture. She was scheduled for surgery on 05/10/2019. Hospital course: Details of patient's surgery can be found in operative report. Patient tolerated the procedure well and was subsequently transported to orthopedic floor. Patient's orthopeidc and medical care was provided daily. Patient had daily laboratory tests performed for evaluation of overall blood counts. Patient was noted to have a relatively uneventful postoperative course. Patient reported satisfactory pain control with oral pain medications by postoperative day 0. Patient showed satisfactory progress with physical therapy. Patient moved steadily through the program and had no difficulty meeting the goals by postoperative day 2. Given patient's otherwise satisfactory course and having met physical therapy goals, plan is to discharge patient home on postoperative day 2. Discharge condition/disposition: Patient will be discharged home in stable condition. Discharge medications: Instructions are given on resumption of patient's normal daily medications per primary care recommendation, in addition patient will be prescribed [place] 7.5 mg/325 mg. Discharge instructions: 1. Keep splint clean and dry, do not remove. Keep splint covered while showering 2. Utilize arm sling as needed 3. Visiting nursing care. 4. Pain meds and anticoagulants per prescription. 5. Pain medication has potential to cause constipation. Increase oral fluid and fiber intake. Contact primary care provider if you have not had a bowel movement within 48 hours after discharge 6. Follow up in office at 2 weeks postop with Weston Luz PA-C 7. Follow up with your primary care doctor 7-10 days after discharge. 8. Contact [facility] with any questions, . Procedures: Open internal fixation right distal radius fracture Patient Condition at Discharge: Good Plan - Discharge Summary Discharge Rx Participant: Yes New Discharge Prescriptions: New HYDROcodone/APAP 7.5-325MG [[place] 7.5] 1 - 2 each PO Q6HR PRN #40 tab PRN Reason: Pain No Action Escitalopram [Lexapro] 10 mg PO DAILY ALPRAZolam [Xanax] 0.5 mg PO HS cycloSPORINE 0.05% OPHTH SOLN [Restasis 0.05% Ophth Soln] 1 drop BOTH EYES Q12H Thyroid, Pork [[place] Thyroid] 30 mg PO DAILY HYDROcodone/APAP 5-325MG [[place] 5-325] 1 tab PO Q6HR PRN #11 tab PRN Reason: Pain Discharge Medication List ALPRAZolam [Xanax] 0.5 mg PO HS 01/07/15 [History] Escitalopram [Lexapro] 10 mg PO DAILY 01/07/15 [History] Thyroid, Pork [[place] Thyroid] 30 mg PO DAILY 01/07/15 [History] cycloSPORINE 0.05% OPHTH SOLN [Restasis 0.05% Ophth Soln] 1 drop BOTH EYES Q12H 01/07/15 [History] HYDROcodone/APAP 5-325MG [[place] 5-325] 1 tab PO Q6HR PRN #11 tab 05/04/19 [Rx] HYDROcodone/APAP 7.5-325MG [[place] 7.5] 1 - 2 each PO Q6HR PRN #40 tab 05/12/19 [Rx] Follow up Appointment(s)/Referral(s): Elian Luz PAC [PHYSICIAN TRACKMAN] - 2 Weeks [facility] [NON-STAFF] - Activity/Diet/Wound Care/Special Instructions: Orthopedic discharge instructions: 1. Keep splint clean and dry, keep covered while showering 2. Utilize arm sling as needed 3. Pain medication as needed 4. Elevate the extremity often 5. Follow-up at [facility] 2 weeks Discharge Disposition: HOME WITH HOME HEALTH SERVICES
== END 2019-05-12 12:50 | disposition home health service (06) | DRG 512 ==
LOC: OR 10:59 → EDSTATUS 13:00 → 4SSUR 16:56 → OR 05-11 12:01 → 4SSUR 05-11 17:03
PROVIDERS: ADMIT Orthopaedic Surgery; ATTEND Orthopaedic Surgery
PROC: 0PSH04Z Reposition Right Radius with Internal Fixation Device, Open Approach (ICD-10-PCS; principal; 2019-05-10 13:00)
DX: S52.571A Other intraarticular fracture of lower end of right radius, initial encounter for closed fracture (principal); E03.9 Hypothyroidism, unspecified; K21.9 Gastro-esophageal reflux disease without esophagitis; F32.9 Major depressive disorder, single episode, unspecified; E78.5 Hyperlipidemia, unspecified; Z79.890 Hormone replacement therapy; Z79.899 Other long term (current) drug therapy; W19.XXXA Unspecified fall, initial encounter; Y92.008 Other place in unspecified non-institutional (private) residence as the place of occurrence of the external cause
CPT/HCPCS: 64417

== ENCOUNTER 2019-07-23 22:58 | Inpatient (IN) | payer MEDICARE ==
--- NOTE | 2019-07-24 00:22 | US ---
EXAM: US Duplex Right Lower Extremity Veins CLINICAL HISTORY: ITS.REASON US Reason: Pain TECHNIQUE: Real-time duplex ultrasound scan of the right lower extremity veins integrating B-mode two-dimensional vascular structure, Doppler spectral analysis, color flow Doppler imaging and compression. COMPARISON: No relevant prior studies available. FINDINGS: There is DVT throughout the right lower extremity. IMPRESSION: Widespread right lower extremity DVT <MYCVCSECTION> Critical Value Communications 07/24/19 00:35 Verify Receipt Verified receipt with ER Clerk Mejias for Dr. Andrade on 07/24 00:35 (-04:00)
[2019-07-24] MEDS ORDERED: SODIUM CHLORIDE 0.9% 1,000 ML IV STA (00:35)
[2019-07-24] MEDS ORDERED: HEPARIN SODIUM,PORCINE 5,000 UNIT/ML 1 ML VIAL IV ONE (00:36)
[2019-07-24] MEDS ORDERED: HEPARIN SODIUM,PORCINE 5,000 UNIT/ML 1 ML VIAL IV PRN (00:36)
--- NOTE | 2019-07-24 00:38 | ED ---
Extremity Problem HPI - General Chief complaint: Extremity Problem,Nontraumatic Stated complaint: Rt Foot swelling, leg redness Source: patient Mode of arrival: ambulatory Limitations: no limitations - History of Present Illness Initial comments: Anemia is a pleasant 73-year-old female who presents to the emergency department today for evaluation of swelling aching pain in her right lower extremity. Patient reports she does have a history of a DVT in the distant past, she states that she's not certain all the details about that she had gone in for vein stripping was told that she may have a DVT was placed on a blood thinner for a short period of time but upon reevaluation was told she possibly never had a DVT and was taken off the blood thinners. Patient denies any recent immobilization, long travel, she is not on any exogenous estrogen, she is not a smoker. Patient denies any chest pain, palpitations or shortness of breath. - Related Data Home Medications Medication Instructions Recorded Confirmed ALPRAZolam [Xanax] 0.5 mg PO HS 01/07/15 05/11/19 Escitalopram [Lexapro] 10 mg PO DAILY 01/07/15 05/11/19 Thyroid, Pork [[place] Thyroid] 30 mg PO DAILY 01/07/15 05/11/19 cycloSPORINE 0.05% OPHTH SOLN 1 drop BOTH EYES Q12H 01/07/15 05/11/19 [Restasis 0.05% Ophth Soln] Previous Rx's Medication Instructions Recorded HYDROcodone/APAP 5-325MG [[place] 1 tab PO Q6HR PRN #11 tab 05/04/19 5-325] HYDROcodone/APAP 7.5-325MG [[place] 1 - 2 each PO Q6HR PRN #40 tab 05/12/19 7.5] Allergies Allergy/AdvReac Type Severity Reaction Status Date / Time adhesive AdvReac Unknown RED, Verified 07/23/19 23:06 IRRITATED SKIN cast lining Allergy Rash/Hives Uncoded 07/23/19 23:06 Review of Systems ROS Statement: Those systems with pertinent positive or pertinent negative responses have been documented in the HPI. ROS Other: All systems not noted in ROS Statement are negative. Past Medical History Past Medical History: Asthma, Fibromyalgia, GERD/Reflux, Hyperlipidemia, Osteoarthritis (OA), Thyroid Disorder Additional Past Medical History / Comment(s): HX OF SKIN CANCER, LOW BLOOD PRESSURE WITH OCCASIONAL DIZZINESS UPON STANDING, HX OF ASTHMA(NO PROBLEM NOW), ACHALASIA OF ESOPHAGUS-SLEEPS WTIH THE HOB ELEVATED AND LIQUID MEALS ONLY. Varicose veins, hx hiatal hernia,. 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 has TMJ History of Any Multi-Drug Resistant Organisms: None Reported Past Surgical History: Breast Surgery, Tubal Ligation Additional Past Surgical History / Comment(s): CYST RT BREAST, ACHALASIA OF ESOPHAGUS SURGERY ON SPHINCTER. right wrist surgery Past Anesthesia/Blood Transfusion Reactions: Previous Problems w/ Anesthesia Additional Past Anesthesia/Blood Transfusion Reaction / Comment(s): PT STATES DUE TO ACHALASIA OF ESOPHAGUS -DR SAID HER HEAD WOULD BE ELEVATED DURING SURGERY. needs small childrens tubes for intubation- has not had any surgery with general in a long time but had EGD at [facility](record on chart). pt states has TMJ and jaw locks, states she has a non working esophagus but a tight sphincter valve where liquids do not empty. Past Psychological History: Anxiety, Depression Smoking Status: Never smoker Past Alcohol Use History: None Reported Past Drug Use History: None Reported - Past Family History Mother Family Medical History: Deep Vein Thrombosis (DVT), Pulmonary Embolus Brother(s) Family Medical History: Deep Vein Thrombosis (DVT) General Exam - General Exam Comments Initial Comments: Physical Exam GENERAL: Patient is well-developed and well-nourished. Patient is nontoxic and well- hydrated and is in no distress. HENT: Normocephalic, Atraumatic. EYES: PERRL, EOMI PULMONARY: Unlabored respirations. No audible rales rhonchi or wheezing was noted. CARDIOVASCULAR: There is a regular rate and rhythm without any murmurs gallops or rubs. ABDOMEN: Soft and nontender with normal bowel sounds. SKIN: Skin is clear with no lesions or rashes and otherwise unremarkable. : Deferred NEUROLOGIC: Patient is alert and oriented x3. Moving all extremities spontaneously MUSCULOSKELETAL: Normal extremities with adequate strength and full range of motion. 1+ pitting edema of her right lower extremity PSYCHIATRIC: Normal psychiatric evaluation. Limitations: no limitations Course Vital Signs 07/23/19 23:00 Temperature 97.6 F Pulse Rate 97 Respiratory 18 Rate Blood Pressure 122/78 O2 Sat by Pulse 98 Oximetry Medical Decision Making - Medical Decision Making DVT study was ordered and resulted with extensive right lower extremity DVT the refore additional labs and CT imaging to rule out PE or significant clot burden was obtained Labs are relatively within normal limits Computed tomography scan does confirm bilateral lower lobe pulmonary embolus better nonocclusive The heparin order was changed from low to high dose. She will be admitted to the telemetry floor for close cardiopulmonary monitoring. patient's primary care physician Dr. Sinha admits to the [facility] hospitalist group. - Lab Data Result diagrams: 07/24/19 01:20 07/24/19 01:20 Lab Results 07/24/19 07/24/19 07/24/19 Range/Units 01:20 01:20 01:20 WBC 12.2 H (3.8-10.6) k/uL RBC 4.82 (3.80-5.40) m/uL Hgb 13.5 (11.4-16.0) gm/dL Hct 41.0 (34.0-46.0) % MCV 85.0 (80.0-100.0) fL MCH 28.0 (25.0-35.0) pg MCHC 32.9 (31.0-37.0) g/dL RDW 14.7 (11.5-15.5) % Plt Count 445 (150-450) k/uL Neutrophils % 68 % Lymphocytes % 18 % Monocytes % 8 % Eosinophils % 4 % Basophils % 1 % Neutrophils # 8.3 H (1.3-7.7) k/uL Lymphocytes # 2.2 (1.0-4.8) k/uL Monocytes # 0.9 (0-1.0) k/uL Eosinophils # 0.5 (0-0.7) k/uL Basophils # 0.1 (0-0.2) k/uL PT 9.6 (9.0-12.0) sec INR 0.9 (<1.2) APTT 24.3 (22.0-30.0) sec Sodium 140 (137-145) mmol/L Potassium 4.1 (3.5-5.1) mmol/L Chloride 101 (98-107) mmol/L Carbon Dioxide 31 H (22-30) mmol/L Anion Gap 8 mmol/L BUN 34 H (7-17) mg/dL Creatinine 0.74 (0.52-1.04) mg/dL Est GFR (CKD-EPI)AfAm >90 (>60 ml/min/1.73 sqM) Est GFR (CKD-EPI)NonAf 82 (>60 ml/min/1.73 sqM) Glucose 94 (74-99) mg/dL Calcium 10.1 (8.4-10.2) mg/dL Magnesium 2.3 (1.6-2.3) mg/dL Total Bilirubin 0.2 (0.2-1.3) mg/dL AST 27 (14-36) U/L ALT 19 (9-52) U/L Alkaline Phosphatase 144 H (38-126) U/L Troponin I (0.000-0.034) ng/mL NT-Pro-B Natriuret Pep pg/mL Total Protein 7.3 (6.3-8.2) g/dL Albumin 4.2 (3.5-5.0) g/dL 07/24/19 07/24/19 Range/Units 01:20 01:20 WBC (3.8-10.6) k/uL RBC (3.80-5.40) m/uL Hgb (11.4-16.0) gm/dL Hct (34.0-46.0) % MCV (80.0-100.0) fL MCH (25.0-35.0) pg MCHC (31.0-37.0) g/dL RDW (11.5-15.5) % Plt Count (150-450) k/uL Neutrophils % % Lymphocytes % % Monocytes % % Eosinophils % % Basophils % % Neutrophils # (1.3-7.7) k/uL Lymphocytes # (1.0-4.8) k/uL Monocytes # (0-1.0) k/uL Eosinophils # (0-0.7) k/uL Basophils # (0-0.2) k/uL PT (9.0-12.0) sec INR (<1.2) APTT (22.0-30.0) sec Sodium (137-145) mmol/L Potassium (3.5-5.1) mmol/L Chloride (98-107) mmol/L Carbon Dioxide (22-30) mmol/L Anion Gap mmol/L BUN (7-17) mg/dL Creatinine (0.52-1.04) mg/dL Est GFR (CKD-EPI)AfAm (>60 ml/min/1.73 sqM) Est GFR (CKD-EPI)NonAf (>60 ml/min/1.73 sqM) Glucose (74-99) mg/dL Calcium (8.4-10.2) mg/dL Magnesium (1.6-2.3) mg/dL Total Bilirubin (0.2-1.3) mg/dL AST (14-36) U/L ALT (9-52) U/L Alkaline Phosphatase (38-126) U/L Troponin I <0.012 (0.000-0.034) ng/mL NT-Pro-B Natriuret Pep 165 pg/mL Total Protein (6.3-8.2) g/dL Albumin (3.5-5.0) g/dL Critical Care Time Critical Care Time: Yes Total Critical Care Time: 30 Critical Care Time: Critical Care Time Critical care time was exclusive of separately billable procedures and treating other patients and teaching time. Critical care was necessary to treat or prevent imminent or life-threatening deterioration. Given the critical condition in which the patient arrived, the patient was immediately assessed by myself and the nurse, and cardiac monitoring initiated due to the potential for rapid decompensation of the patient's clinical condition. During the course of the patients stay, I spent a considerable amount of time at the bedside performing serial re-evaluations of the patient's hemo dynamic and clinical status because of the recognized potential threat to life or limb in this condition. I then had a chance to review not only all of the available current laboratory and radiographic studies obtained today, but I also reviewed old records available to me at the time. Additionally, any ancillary information available including director customer records were reviewed. Sequential vital signs were obtained. Disposition Clinical Impression: Deep vein thrombosis of lower extremity, Pulmonary embolism Disposition: ADMITTED IP TO THIS [facility] Condition: Serious Referrals: Wiley Sinha DO [Primary Care Provider] - 1-2 days
[2019-07-24] MEDS ORDERED: HEPARIN SOD,PORK IN 0.45% NACL 25,000 UNIT in 0.45% NACL 1 250ML.BAG IV SCH (00:45)
[2019-07-24 01:31] LABS: Basophils # (A) 0.1 k/uL (0-0.2); Basophils % (A) 1 %; Eosinophils # (A) 0.5 k/uL (0-0.7); Eosinophils % (A) 4 %; HGB 13.5 gm/dL (11.4-16.0); Lymphocytes # (A) 2.2 k/uL (1.0-4.8); Lymphocytes % (A) 18 %; MCHC 32.9 g/dL (31.0-37.0); Mean Platelet Volume 6.8; Monocytes # (A) 0.9 k/uL (0-1.0); Monocytes % (A) 8 %; Neutrophils # (A) 8.3 k/uL (1.3-7.7); Neutrophils % (A) 68 %; Platelet Count 445 k/uL (150-450); RBC 4.82 m/uL (3.80-5.40); RDW 14.7 % (11.5-15.5); WBC 12.2 k/uL (3.8-10.6)
[2019-07-24 01:40] LABS: INR 0.9 (<1.2); Partial Thromboplastin Time 24.3 sec (22.0-30.0); Prothrombin Time 9.6 sec (9.0-12.0)
[2019-07-24 01:46] LABS: ALT 19 U/L (9-52); AST 27 U/L (14-36); African American GFR (CKD) >90 (>60 ml/min/1.73 sqM); Albumin 4.2 g/dL (3.5-5.0); Alkaline Phosphatase 144 U/L (38-126); Anion Gap 8 mmol/L; Blood Urea Nitrogen 34 mg/dL (7-17); Calcium 10.1 mg/dL (8.4-10.2); Carbon Dioxide 31 mmol/L (22-30); Chloride 101 mmol/L (98-107); Glucose 94 mg/dL (74-99); Magnesium 2.3 mg/dL (1.6-2.3); Potassium 4.1 mmol/L (3.5-5.1); Sodium 140 mmol/L (137-145); Total Bilirubin 0.2 mg/dL (0.2-1.3); Total Protein 7.3 g/dL (6.3-8.2)
--- NOTE | 2019-07-24 03:09 | CT ---
EXAM: CT Angiography Chest Without And With Intravenous Contrast CLINICAL HISTORY: ITS.REASON CT Reason: extensive DVT concern for PE - eval clot burden TECHNIQUE: Axial computed tomographic angiography images of the chest without and with intravenous contrast using pulmonary embolism protocol. This CT exam was performed using one or more of the following dose reduction techniques: automated exposure control, adjustment of the mA and/or kV according to patient size, and/or use of iterative reconstruction technique. 3D reconstructed images were created and reviewed. COMPARISON: No relevant prior studies available. FINDINGS: Pulmonary arteries: Small nonocclusive bilateral lower lobe pulmonary emboli. Aorta: No suspicious findings. No thoracic aortic aneurysm. Lungs: Unremarkable. No mass. No consolidation. Pleural space: Unremarkable. No significant effusion. No pneumothorax. Heart: Unremarkable. No cardiomegaly. No significant pericardial effusion. No evidence of RV dysfunction. Mediastinum: Patulous, debris containing thoracic esophagus. Moderate hiatal hernia. Bones/joints: No acute fracture. No dislocation. Soft tissues: Unremarkable. Lymph nodes: Unremarkable. No enlarged lymph nodes. IMPRESSION: Small nonocclusive bilateral lower lobe pulmonary emboli. EXAM: CT Angiography Abdomen and Pelvis With Runoff to the Lower Extremities With Intravenous Contrast CLINICAL HISTORY: ITS.REASON CT Reason: extensive DVT concern for PE - eval clot burden TECHNIQUE: Axial computed tomographic angiography images of the abdomen, pelvis and lower extremities with intravenous contrast using CT angiography protocol. This CT exam was performed using one or more of the following dose reduction techniques: automated exposure control, adjustment of the mA and/or kV according to patient size, and/or use of iterative reconstruction technique. 3D reconstructed images were created and reviewed. COMPARISON: No relevant prior studies available. FINDINGS: VASCULATURE: Aorta: No suspicious findings. No abdominal aortic aneurysm. No dissection. Celiac trunk and mesenteric arteries: No suspicious findings. No occlusion or significant stenosis. Renal arteries: No suspicious findings. No occlusion or significant stenosis. Right iliac arteries: No suspicious findings. No occlusion or significant stenosis. Right femoral/popliteal arteries: No suspicious findings. No occlusion or significant stenosis. Right calf/foot arteries: No suspicious findings. No occlusion or significant stenosis. Left iliac arteries: No suspicious findings. No occlusion or significant stenosis. Left femoral/popliteal arteries: No suspicious findings. No occlusion or significant stenosis. Left calf/foot arteries: No suspicious findings. No occlusion or significant stenosis. Lung bases: Unremarkable. No mass. No consolidation. ABDOMEN: Liver: Unremarkable. No mass. Gallbladder and bile ducts: Unremarkable. No calcified stones. No ductal dilation. Pancreas: Unremarkable. No ductal dilation. No mass. Spleen: Unremarkable. No splenomegaly. Adrenals: Unremarkable. No mass. Kidneys and ureters: Unremarkable. No hydronephrosis. No solid mass. Stomach and bowel: Unremarkable. No obstruction. No mucosal thickening. PELVIS: Appendix: No findings to suggest acute appendicitis. Bladder: Unremarkable. No mass. Reproductive: 5 cm right adnexal cyst. ABDOMEN, PELVIS and LOWER EXTREMITIES: Intraperitoneal space: Unremarkable. No significant fluid collection. No free air. Bones/joints: No acute fracture. No dislocation. Soft tissues: Unremarkable. Lymph nodes: Unremarkable. No enlarged lymph nodes. IMPRESSION: 5 cm right adnexal cyst. <MYCVCSECTION> [employer] 07/24/19 03:19 Verify Receipt Verified receipt with RYLAN Mejias for Dr. Andrade on 07/24 03:19 (-04:00)
[2019-07-24] MEDS ORDERED: NALOXONE 0.4 MG/ML 1 ML VIAL IV PRN (03:18)
[2019-07-24] MEDS: HEPARIN SOD,PORK IN 0.45% NACL 25,000 UNIT in 0.45% NACL 1 250ML.BAG IV SCH ×2 (04:20→21:51)
[2019-07-24] MEDS ORDERED: ALPRAZolam 0.25 MG TAB PO PRN (12:54)
[2019-07-24] MEDS ORDERED: TEMAZEPAM 15 MG CAP PO PRN (12:54)
[2019-07-24] MEDS ORDERED: HYDROcodone/APAP 5-325MG 1 EACH TAB PO PRN (12:55)
[2019-07-24] MEDS: PANTOPRAZOLE 40 MG TABLET PO SCH (14:02)
[2019-07-24] MEDS: ESCITALOPRAM 5 MG TAB PO SCH (14:03)
[2019-07-24] MEDS: cycloSPORINE 0.05% OPHTH 0.4 ML DROPERETTE BOTH EYES SCH ×2 (14:04→21:53)
--- NOTE | 2019-07-24 14:29 | HP ---
HISTORY AND PHYSICAL CHIEF COMPLAINT: Pain and swelling of the right leg. HISTORY OF PRESENT ILLNESS: This 73-year-old with past medical history of asthma, fibromyalgia, GERD, hyperlipidemia, history of DJD, history of hypothyroidism, history of breast surgery, history of tubal ligation, history of achalasia of the esophagus, being followed by Dr. Sinha in the outpatient setting was complaining of right leg pain and swelling, which is increased in intensity. Because of increasing difficulties the patient came to [facility] for further evaluation and treatment. Patient has history of DVT in the remote past apparently after a vein stripping procedure, but no records available at this time. The patient came to [facility] and had further evaluation. The patient had a venous Doppler of the right leg which showed DVT throughout the right lower extremity and a CTA was also done which showed small nonocclusive bilateral lower lobe pulmonary emboli and heparin drip was started. is being therapeutic at this time. There is no history of fever or rigors. No headache, loss of consciousness, seizures at this time. PAST MEDICAL HISTORY: History of asthma, history of fibromyalgia, GERD, hyperlipidemia, history of DJD, history of breast surgery, tubal ligation, anxiety, depression. HOME MEDICATIONS: 1. Vitamin E 100 units daily. 2. Naprosyn 220 mg p.o. daily. 3. Vitamin D3 1000 daily. 4. Vitamin C 1000 mg p.o. daily. 5. Cyclosporine ophthalmic solution 1 drop b.i.d. 7. Lexapro 5 mg daily. 8. Xanax 0.5 mg q.h.s. ALLERGIES: ntd FAMILY HISTORY: History of DVT, pulmonary embolus in the family. SOCIAL HISTORY: No history of smoking. No history of alcohol intake. REVIEW OF SYSTEMS: ENT No history of diminished hearing or vision. CARDIOVASCULAR No angina or palpitations. RESPIRATORY As mentioned earlier. GI No nausea, vomiting, or diarrhea. No dysuria. NERVOUS No numbness or weakness. ALLERGY/IMMUNOLOGY No asthma or hayfever. MUSCULOSKELETAL As mentioned earlier. HEMATOLOGY/ONCOLOGY Negative. ENDOCRINE As mentioned earlier. CONSTITUTIONAL: As mentioned. DERMATOLOGY Negative. PSYCHIATRY As mentioned earlier. PHYSICAL EXAMINATION: Alert and oriented x3. Pulse 69, blood pressure 119/52, respirations 16, temperature 97.8, pulse ox 97% on room air. HEENT: Conjunctivae normal. Oral mucosa moist. NECK: No jugular venous distention. No lymph node enlargement. CARDIOVASCULAR: S1, S2. RESPIRATORY: Diminished breath sounds at the bases. No rhonchi, no crackles. ABDOMEN: Soft, nontender. No mass palpable. LEGS: Right leg swelling and some tenderness and minimal erythema present. Pulses felt normally. NERVOUS SYSTEM: Higher functions as mentioned earlier. Moves all four limbs. No focal deficits. LYMPHATICS: No lymph nodes in neck or axilla. SKIN: As mentioned earlier. JOINTS: No active deforming arthropathy. LAB STUDIES: WBC 12.2, hemoglobin 13.5, sodium 140, potassium 4.1, APTT is 85.3. ASSESSMENT: 1. Acute deep vein thrombosis of the right leg. 2. Acute pulmonary embolism, bilateral, small. 3. Increased WBC. 4. Heparin monitoring. 5. History of previous deep venous thrombosis. 6. History of asthma. 7. History of fibromyalgia. 8. History of gastroesophageal reflux disease. 9. History of hyperlipidemia. 10.History of degenerative joint disease. 11.History of hypothyroidism. 12.History of achalasia of esophagitis. 13.History of Sjogren syndrome. 14.History of hypoglycemia. 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 16.History of dysautonomia ( ). 17.History of breast cyst. 18.Anxiety, depression. RECOMMENDATIONS AND DISCUSSION: In this 73-year-old woman who presented with multiple complex medical issues, at this time I recommend continue the current medications, continue symptomatic treatment. Otherwise, continue with IV heparin. Otherwise, the patient may be a candidate for Eliquis as an outpatient. Probably lifelong treatment is needed because of the patient's history. I would recommend repeat labs. Resume the home medications. Once heparin is therapeutic will recommend increase ambulation and closely monitor in the outpatient setting. Dr. Sinha will follow tomorrow. See orders for details. Stable but overall prognosis guarded. The patient understands. MMODL / IJN: [id number] / [facility]ITAL[facility]
[2019-07-24] MEDS: THYROID, PORK 30 MG TAB PO SCH (15:43)
[2019-07-24] MEDS ORDERED: ALPRAZolam 0.5 MG TAB PO SCH (21:00)
[2019-07-25 05:49] VITALS: TEMP 97.7
[2019-07-25 06:13] LABS: Basophils # (A) 0.1 k/uL (0-0.2); Basophils % (A) 1 %; Eosinophils # (A) 0.4 k/uL (0-0.7); Eosinophils % (A) 5 %; Hypochromasia Slight; Lymphocytes # (A) 2.6 k/uL (1.0-4.8); Lymphocytes % (A) 32 %; MCH 27.4 pg (25.0-35.0); MCHC 31.4 g/dL (31.0-37.0); Mean Platelet Volume 6.8; Monocytes # (A) 0.6 k/uL (0-1.0); Monocytes % (A) 7 %; Neutrophils # (A) 4.3 k/uL (1.3-7.7); Neutrophils % (A) 52 %; Platelet Count 398 k/uL (150-450); RBC 4.37 m/uL (3.80-5.40); RDW 13.8 % (11.5-15.5); WBC 8.2 k/uL (3.8-10.6)
[2019-07-25] MEDS: PANTOPRAZOLE 40 MG TABLET PO SCH (06:44)
[2019-07-25 07:27] LABS: Calcium 9.4 mg/dL (8.4-10.2)
[2019-07-25] MEDS ORDERED: CHOLECALCIFEROL 1,000 UNIT TAB PO SCH (09:00)
--- NOTE | 2019-07-25 09:40 | P.PN ---
Subjective Progress Note Date: 07/25/19 This is a 73-year-old female admitted with acute right lower extremity DVT, small nonocclusive bilateral PE and multiple other medical issues. Maintained on heparin drip protocol .VSS.telemetry sinus bradycardia to sinus rhythm .maintaining O2 sats in the high 90s on room air .consuming 100% on diet with no nausea vomiting or diarrhea .Denies chest pain, palpitations or shortness of breath. Denies lightheadedness dizziness or focal deficits. Objective - Vital Signs Vital signs: Vital Signs Temp 97.7 F 07/25/19 04:00 Pulse 69 07/25/19 04:00 Resp 17 07/25/19 04:00 BP 103/61 07/25/19 04:00 Pulse Ox 96 07/25/19 04:00 Intake & Output 07/24/19 07/25/19 07/25/19 18:59 06:59 18:59 Intake Total 480 1190.393 240 Output Total 500 300 Balance -20 890.393 240 Weight 89.3 kg Intake: Intake, IV Titration 1190.393 0 Amount Heparin Sod,Pork in 0.45% 390.393 0 NaCl 25,000 unit In 0.45 % NaCl 1 250ml.bag @ 18 UNITS/KG/HR 15.513 mls/hr IV .[id number] SHAHEED Rx#: [id number] Sodium Chloride 0.9% 1, 800 000 ml @ 100 mls/hr IV . Q10H STA Rx#:[id number] Oral 480 240 Output: Urine 500 300 Other: Voiding Method Toilet Bedside Commode # Voids 2 2 # Bowel Movements 1 - Exam VITAL SIGNS: As above GENERAL: Sitting up in bed, no acute distress HEENT: Conjunctivae normal. eyes normal. Oral mucosa moist NECK: No JVD. No thyroid enlargement. No LNs CARDIOVASCULAR: S1, S2 regular.. No murmur RESPIRATION: Nonlabored, Breath sounds diminished in the bases. No rhonchi or crackles. No bronchial breathing. ABDOMEN: Soft, nontender . No guarding. no masses palpable. No ascites, No hepatosplenomegaly.Bowel sounds heard. LEGS: Right lower extremity tenderness, edema, minimal erythema, positive pulses PSYCHIATRY: Alert and oriented X3, mood and affect flat. NERVOUS SYSTEM: Cranial N 2-12 grossly normal. Moves all 4 limbs. Diffuse weakness No focal deficits. Strength and sensation grossly intact.. Skin: no lesions, no rash Lymphatic system. No LN neck axilla or groin. - Labs CBC & Chem 7: 07/25/19 06:03 07/25/19 06:03 Labs: Abnormal Lab Results - Last 24 Hours (Table) 07/24/19 07/25/19 07/25/19 Range/Units 09:56 06:03 06:03 APTT 85.3 H 147.6 H* (22.0-30.0) sec Chloride 112 H (98-107) mmol/L BUN 18 H (7-17) mg/dL Assessment and Plan Assessment: Acute DVT of the right leg -Acute pulmonary embolism, bilateral small non-occlusive -Questionable history of DVT -Chronic intermittent asthma -Fibromyalgia -Gastroesophageal reflux disease-hyperlipidemia -Degenerative joint disease-up of thyroidism -Sjogren Syndrome -Logans Dystrophy -Hx of dystonia -Anxiety, depression - RIght Adnexal cyst 5 cm per CTA -Moderate hiatal hernia per CTA Plan: Continue on current medication regime ,monitoring and symptomatic treatment. Currently maintained on heparin drip. Case management to verify outpatient coverage for Eliquis. Discharge planning in progress. The impression and plan of care has been dictated as directed. : I performed a history and examination of this patient, discussed the same with the dictator. I agree with the dictator's note ,documented as a scribe. Any additional findings or plans will be noted.
[2019-07-25] MEDS: ESCITALOPRAM 5 MG TAB PO SCH (10:07)
[2019-07-25] MEDS: THYROID, PORK 30 MG TAB PO SCH (10:07)
[2019-07-25] MEDS: cycloSPORINE 0.05% OPHTH 0.4 ML DROPERETTE BOTH EYES SCH (10:07)
[2019-07-25 10:10] VITALS: RESP 16
[2019-07-25 11:06] VITALS: BMI 32.7
[2019-07-25 12:09] VITALS: BP 94/55; PULSE 70
--- NOTE | 2019-07-25 12:55 | P.DS ---
Providers Date of admission: 07/24/19 03:19 Expected date of discharge: 07/25/19 Attending physician: Wiley Sinha Primary care physician: Wiley Sinha [facility] Course: Final Diagnoses: Acute DVT of the right leg -Acute pulmonary embolism, bilateral small non-occlusive -Questionable history of DVT -Chronic intermittent asthma -Fibromyalgia -Gastroesophageal reflux disease-hyperlipidemia -Degenerative joint disease-up of thyroidism -Sjogren Syndrome -Logans Dystrophy -Hx of dystonia -Anxiety, depression - RIght Adnexal cyst 5 cm per CTA -Moderate hiatal hernia per CTA Hospital course:This is a 73-year-old female admitted with acute right lower extremity DVT, small nonocclusive bilateral PE and multiple other medical issues. Maintained on heparin drip protocol .VSS.telemetry sinus bradycardia to sinus rhythm .maintaining O2 sats in the high 90s on room air .consuming 100% on diet with no nausea vomiting or diarrhea .Denies chest pain, palpitations or shortness of breath. Denies lightheadedness dizziness or focal deficits. Converted from heparin drip to Eliquis. Patient will be discharged home pending case management confirmation of outpatient Eliquis coverage, in a stable condition with guarded prognosis. - Exam GENERAL: Alert and oriented 3, no acute distress CARDIOVASCULAR: S1, S2 regular.. No murmur RESPIRATION: Nonlabored, Breath sounds diminished in the bases. No rhonchi or crackles. ABDOMEN: Soft, nontender . No guarding. no masses palpable. Bowel sounds heard. NERVOUS SYSTEM: No focal deficits. The impression and plan of care has been dictated as directed. : I performed a history and examination of this patient, discussed the same with the dictator. I agree with the dictator's note ,documented as a scribe. Any additional findings or plans will be noted. Time taken: 35 minutes Patient Condition at Discharge: Stable Plan - Discharge Summary New Discharge Prescriptions: New Apixaban [Eliquis Starter Pack (for VTE)] 0 mg PO DIRECTED 30 Days #1 pack Pantoprazole [Protonix] 40 mg PO AC-BRKFST #30 tablet. Continue Escitalopram [Lexapro] 5 mg PO DAILY ALPRAZolam [Xanax] 0.5 mg PO HS cycloSPORINE 0.05% OPHTH SOLN [Restasis] 1 drop BOTH EYES Q12H Thyroid, Pork [[place] Thyroid] 30 mg PO DAILY Vitamin E 100 unit PO DAILY Cholecalciferol [Vitamin D3 (25 Mcg = 1000 Iu)] 1,000 unit PO DAILY Ascorbic Acid [Vitamin C] 1,000 mg PO DAILY Discontinued Naproxen Sodium [Aleve] 220 mg PO DAILY Discharge Medication List ALPRAZolam [Xanax] 0.5 mg PO HS 01/07/15 [History] Escitalopram [Lexapro] 5 mg PO DAILY 01/07/15 [History] Thyroid, Pork [[place]rington Thyroid] 30 mg PO DAILY 01/07/15 [History] cycloSPORINE 0.05% OPHTH SOLN [Restasis] 1 drop BOTH EYES Q12H 01/07/15 [History] Ascorbic Acid [Vitamin C] 1,000 mg PO DAILY 07/24/19 [History] Cholecalciferol [Vitamin D3 (25 Mcg = 1000 Iu)] 1,000 unit PO DAILY 07/24/19 [History] Vitamin E 100 unit PO DAILY 07/24/19 [History] Apixaban [Eliquis Starter Pack (for VTE)] 0 mg PO DIRECTED 30 Days #1 pack 07/25/19 [Rx] Pantoprazole [Protonix] 40 mg PO AC-BRKFST #30 tablet. 07/25/19 [Rx] Follow up Appointment(s)/Referral(s): Wiley Sinha DO [Primary Care Provider] - 1 Week
[2019-07-25] MEDS ORDERED: APIXABAN 5 MG TAB PO SCH (13:00)
[2019-07-25] MEDS: HEPARIN SOD,PORK IN 0.45% NACL 25,000 UNIT in 0.45% NACL 1 250ML.BAG IV SCH (14:50)
== END 2019-07-25 16:00 | disposition home or self-care (01) | DRG 299 ==
LOC: EC 22:58 → OBSVTOIN 07-24 03:19 → INTOOBSV 07-24 03:19 → 3SCARD 07-24 03:19
PROVIDERS: ADMIT Family Medicine; ATTEND Family Medicine
DX: I82.401 Acute embolism and thrombosis of unspecified deep veins of right lower extremity (principal); I26.99 Other pulmonary embolism without acute cor pulmonale; K22.0 Achalasia of cardia; M35.00 Sjogren syndrome, unspecified; J45.20 Mild intermittent asthma, uncomplicated; M79.7 Fibromyalgia; E78.5 Hyperlipidemia, unspecified; E03.9 Hypothyroidism, unspecified; F41.9 Anxiety disorder, unspecified; F32.9 Major depressive disorder, single episode, unspecified; G24.9 Dystonia, unspecified; I83.90 Asymptomatic varicose veins of unspecified lower extremity; K21.0 Gastro-esophageal reflux disease with esophagitis; K44.9 Diaphragmatic hernia without obstruction or gangrene; N83.201 Unspecified ovarian cyst, right side; M19.90 Unspecified osteoarthritis, unspecified site; Z79.1 Long term (current) use of non-steroidal anti-inflammatories (NSAID); Z79.899 Other long term (current) drug therapy; Z86.718 Personal history of other venous thrombosis and embolism; Z91.048 Other nonmedicinal substance allergy status; Z85.828 Personal history of other malignant neoplasm of skin; Z86.2 Personal history of diseases of the blood and blood-forming organs and certain disorders involving the immune mechanism; Z86.69 Personal history of other diseases of the nervous system and sense organs; Z98.51 Tubal ligation status; Z83.2 Family history of diseases of the blood and blood-forming organs and certain disorders involving the immune mechanism
CPT/HCPCS: 71275; 75635; 80048; 80053; 83735; 83880; 84484; 85025; 85610; 85730; 93005; 96365; 96366; 96376; 99285

== ENCOUNTER 2019-11-02 17:35 | Emergency (ER) | payer MEDICARE ==
[2019-11-02 18:38] VITALS: TEMP 97.9
[2019-11-02 18:44] LABS: HCT 39.7 % (34.0-46.0); HGB 13.1 gm/dL (11.4-16.0); MCH 28.2 pg (25.0-35.0); MCHC 33.1 g/dL (31.0-37.0); MCV 85.1 fL (80.0-100.0); Mean Platelet Volume 7.2; Platelet Count 359 k/uL (150-450); RBC 4.67 m/uL (3.80-5.40); RDW 13.5 % (11.5-15.5); WBC 8.6 k/uL (3.8-10.6)
[2019-11-02 18:53] LABS: INR 0.9 (<1.2); Partial Thromboplastin Time 26.9 sec (22.0-30.0); Prothrombin Time 10.1 sec (9.0-12.0)
[2019-11-02 18:58] LABS: Albumin 4.1 g/dL (3.5-5.0); Calcium 10.3 mg/dL (8.4-10.2); Potassium 4.2 mmol/L (3.5-5.1); Total Bilirubin 0.3 mg/dL (0.2-1.3); Total Protein 6.9 g/dL (6.3-8.2)
[2019-11-02 20:01] VITALS: BP 109/62; PULSE 76; RESP 18
--- NOTE | 2019-11-02 20:21 | US ---
EXAMINATION TYPE: US venous doppler duplex LE RT DATE OF EXAM: 11/02/2019 7:24 PM COMPARISON: US 2019 CLINICAL HISTORY: swelling, hx of dvt. Right foot swelling x 1 day. Hx of DVT. Patient takes eliquis. SIDE PERFORMED: Right TECHNIQUE: The lower extremity deep venous system is examined utilizing real time linear array sonog yu with graded compression, doppler sonography and color-flow sonography. VESSELS IMAGED: External Iliac Vein (EIV) Common Femoral Vein Deep Femoral Vein Greater Saphenous Vein * Femoral Vein Popliteal Vein Small Saphenous Vein * Proximal Calf Veins (* superficial vessels) Right Leg: The distal femoral vein and proximal popliteal vein appear to compress incompletely. [place] r Doppler defect is seen. This appears to be chronic. IMPRESSION: There is evidence of some mild chronic deep venous thrombosis in the right leg.
--- NOTE | 2019-11-02 20:47 | ED ---
Extremity Problem HPI - General Chief complaint: Extremity Problem,Nontraumatic Stated complaint: Swollen foot, poss DVT Time Seen by Provider: 11/02/19 17:53 Source: patient Mode of arrival: ambulatory Limitations: no limitations - History of Present Illness Initial comments: Patient is a 74-year-old female with history of DVT [facility] with a chief complaint of right leg swelling. Patient reports she was diagnosed with multiple DVTs in the right lower extremity about 2 months ago and presenting with similar type symptoms of right lower leg swelling. Patient reports this one occurred only this morning with some swelling along the ankle and calf area. Patient reports some pain in the region as well. Patient denies any trauma to the region. Patient states that she is very active and is mostly on her feet throughout the day. Patient is currently on eliquis - Related Data Home Medications Medication Instructions Recorded Confirmed ALPRAZolam [Xanax] 0.5 mg PO HS 01/07/15 07/24/19 Escitalopram [Lexapro] 5 mg PO DAILY 01/07/15 07/24/19 Thyroid, Pork [[place] Thyroid] 30 mg PO DAILY 01/07/15 07/24/19 cycloSPORINE 0.05% OPHTH SOLN 1 drop BOTH EYES Q12H 01/07/15 07/24/19 [Restasis] Ascorbic Acid [Vitamin C] 1,000 mg PO DAILY 07/24/19 07/24/19 Cholecalciferol [Vitamin D3 (25 1,000 unit PO DAILY 07/24/19 07/24/19 Mcg = 1000 Iu)] Vitamin E 100 unit PO DAILY 07/24/19 07/24/19 Previous Rx's Medication Instructions Recorded Apixaban [Eliquis Starter Pack 0 mg PO DIRECTED 30 Days #1 pack 07/25/19 (for VTE)] Pantoprazole [Protonix] 40 mg PO [id number] #30 tablet. 07/25/19 Allergies Allergy/AdvReac Type Severity Reaction Status Date / Time adhesive Allergy Unknown RED, Verified 11/02/19 17:48 IRRITATED SKIN cast lining Allergy Rash/Hives Uncoded 11/02/19 17:48 Review of Systems ROS Statement: Those systems with pertinent positive or pertinent negative responses have been documented in the HPI. ROS Other: All systems not noted in ROS Statement are negative. Past Medical History Past Medical History: Asthma, Fibromyalgia, GERD/Reflux, Hyperlipidemia, Osteoarthritis (OA), Thyroid Disorder Additional Past Medical History / Comment(s): HX OF SKIN CANCER, LOW BLOOD PRESSURE WITH OCCASIONAL DIZZINESS UPON STANDING, HX OF ASTHMA(NO PROBLEM NOW), ACHALASIA OF ESOPHAGUS-SLEEPS WTIH THE HOB ELEVATED AND LIQUID MEALS ONLY. Vari cose veins, hx hiatal hernia,. 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 has TMJ History of Any Multi-Drug Resistant Organisms: None Reported Past Surgical History: Breast Surgery, Tubal Ligation Additional Past Surgical History / Comment(s): CYST RT BREAST, ACHALASIA OF ESOPHAGUS SURGERY ON SPHINCTER. right wrist surgery Past Anesthesia/Blood Transfusion Reactions: Previous Problems w/ Anesthesia Additional Past Anesthesia/Blood Transfusion Reaction / Comment(s): PT STATES DUE TO ACHALASIA OF ESOPHAGUS -DR SAID HER HEAD WOULD BE ELEVATED DURING SURGERY. needs small childrens tubes for intubation- has not had any surgery with general in a long time but had EGD at [facility](record on chart). pt states has TMJ and jaw locks, states she has a non working esophagus but a tight sphincter valve where liquids do not empty. Past Psychological History: Anxiety, Depression Smoking Status: Never smoker Past Alcohol Use History: None Reported Past Drug Use History: None Reported - Past Family History Mother Family Medical History: Deep Vein Thrombosis (DVT), Pulmonary Embolus Brother(s) Family Medical History: Deep Vein Thrombosis (DVT) General Exam Limitations: no limitations General appearance: alert, in no apparent distress Head exam: Present: atraumatic, normocephalic, normal inspection Eye exam: Present: normal appearance Pupils: Present: normal accommodation ENT exam: Present: normal exam, mucous membranes moist Neck exam: Present: normal inspection, full ROM Respiratory exam: Present: normal lung sounds bilaterally Cardiovascular Exam: Present: regular rate, normal rhythm, normal heart sounds Extremities exam: Present: normal inspection (Patient has varicose veins on bilateral lower extremity. No signs of temperature change between bilateral lower extremities. No paresthesias or skin discoloration.), full ROM, tenderness (Calf tenderness), normal capillary refill, pedal edema (+1), calf tenderness (Positive Homans right lower extremity), other (+2 dorsalis pedis and posterior tibialis bilaterally.) Back exam: Present: normal inspection, full ROM Neurological exam: Present: alert, oriented X3 Psychiatric exam: Present: normal affect, normal mood Skin exam: Present: warm, dry, intact, normal color Course Vital Signs 11/02/19 11/02/19 11/02/19 17:46 17:48 18:33 Temperature 97.3 F L 97.9 F Pulse Rate 82 64 Pulse Rate [ 64 Left Pulse Oximetery] Respiratory 20 15 17 Rate Blood Pressure 115/65 117/65 O2 Sat by Pulse 99 97 Oximetry 11/02/19 19:58 Temperature Pulse Rate 76 Pulse Rate [ Left Pulse Oximetery] Respiratory 18 Rate Blood Pressure 109/62 O2 Sat by Pulse 99 Oximetry Medical Decision Making - Medical Decision Making Patient is 74-year-old female presenting to emergency Department with chief complaint of right leg swelling. On exam patient has +1 right lower extremity swelling with a positive Homans sign. Patient denied chest pain shortness of breath or cough. Patient is not a smoker. D-dimer negative. No need for CTA of the chest. Right lower extremity ultrasound shows a mild chronic DVT. Patient is currently on the correct medication. Patient advised to keep the leg elevated above heart level multiple times throughout the day. Patient also advised to wear compression stockings and avoid extended periods of standing. Strict return parameters were thoroughly discussed with patient was understanding and agreeable. Patient advised to follow primary care. Case d iscussed with physician. - Lab Data Result diagrams: 11/02/19 18:25 11/02/19 18:25 Lab Results 11/02/19 11/02/19 11/02/19 Range/Units 18:25 18:25 18:25 WBC 8.6 (3.8-10.6) k/uL RBC 4.67 (3.80-5.40) m/uL Hgb 13.1 (11.4-16.0) gm/dL Hct 39.7 (34.0-46.0) % MCV 85.1 (80.0-100.0) fL MCH 28.2 (25.0-35.0) pg MCHC 33.1 (31.0-37.0) g/dL RDW 13.5 (11.5-15.5) % Plt Count 359 (150-450) k/uL PT 10.1 (9.0-12.0) sec INR 0.9 (<1.2) APTT 26.9 (22.0-30.0) sec D-Dimer (<0.60) mg/L FEU Sodium 140 (137-145) mmol/L Potassium 4.2 (3.5-5.1) mmol/L Chloride 101 (98-107) mmol/L Carbon Dioxide 31 H (22-30) mmol/L Anion Gap 8 mmol/L BUN 30 H (7-17) mg/dL Creatinine 0.87 (0.52-1.04) mg/dL Est GFR (CKD-EPI)AfAm 77 (>60 ml/min/1.73 sqM) Est GFR (CKD-EPI)NonAf 66 (>60 ml/min/1.73 sqM) Glucose 88 (74-99) mg/dL Calcium 10.3 H (8.4-10.2) mg/dL Total Bilirubin 0.3 (0.2-1.3) mg/dL AST 31 (14-36) U/L ALT 24 (4-34) U/L Alkaline Phosphatase 118 (38-126) U/L Total Protein 6.9 (6.3-8.2) g/dL Albumin 4.1 (3.5-5.0) g/dL 11/02/19 Range/Units 18:25 WBC (3.8-10.6) k/uL RBC (3.80-5.40) m/uL Hgb (11.4-16.0) gm/dL Hct (34.0-46.0) % MCV (80.0-100.0) fL MCH (25.0-35.0) pg MCHC (31.0-37.0) g/dL RDW (11.5-15.5) % Plt Count (150-450) k/uL PT (9.0-12.0) sec INR (<1.2) APTT (22.0-30.0) sec D-Dimer 0.21 (<0.60) mg/L FEU Sodium (137-145) mmol/L Potassium (3.5-5.1) mmol/L Chloride (98-107) mmol/L Carbon Dioxide (22-30) mmol/L Anion Gap mmol/L BUN (7-17) mg/dL Creatinine (0.52-1.04) mg/dL Est GFR (CKD-EPI)AfAm (>60 ml/min/1.73 sqM) Est GFR (CKD-EPI)NonAf (>60 ml/min/1.73 sqM) Glucose (74-99) mg/dL Calcium (8.4-10.2) mg/dL Total Bilirubin (0.2-1.3) mg/dL AST (14-36) U/L ALT (4-34) U/L Alkaline Phosphatase (38-126) U/L Total Protein (6.3-8.2) g/dL Albumin (3.5-5.0) g/dL Disposition Clinical Impression: Chronic deep vein thrombosis (DVT) Disposition: HOME SELF-CARE Condition: Stable Instructions (If sedation given, give patient instructions): Deep Vein Throm bosis (DC) Additional Instructions: Please follow with primary care. Physician at the emergency department if symptoms worsen. Is patient prescribed a controlled substance at d/c from ED?: No Referrals: Wiley Sinha DO [Primary Care Provider] - 1-2 days Time of Disposition: 20:47
== END 2019-11-02 21:24 | disposition home or self-care (01) ==
LOC: EC 17:35
DX: I82.501 Chronic embolism and thrombosis of unspecified deep veins of right lower extremity (principal); I83.893 Varicose veins of bilateral lower extremities with other complications; E07.9 Disorder of thyroid, unspecified; F32.9 Major depressive disorder, single episode, unspecified; F41.9 Anxiety disorder, unspecified; Z91.048 Other nonmedicinal substance allergy status; Z79.890 Hormone replacement therapy; Z79.899 Other long term (current) drug therapy; Z85.828 Personal history of other malignant neoplasm of skin; Z82.49 Family history of ischemic heart disease and other diseases of the circulatory system
CPT/HCPCS: 36415; 80053; 85027; 85379; 85610; 85730; 99284

== ENCOUNTER → 2020-01-18 | Outpatient (CLI) | payer MEDICARE ==
--- NOTE | 2020-01-19 13:45 | MM ---
Reason for exam: screening (asymptomatic). Last mammogram was performed 6 years and 1 month ago. History: Patient is postmenopausal and history of other cancer. Family history of breast cancer in maternal aunt at age 70. Core biopsy of the right breast, December 03, 1998. Benign stereotactic core biopsy of the right breast, December 03, 1998. Excisional biopsy of the right breast. Took progesterone for 3 years. Physical Findings: A clinical breast exam by your physician is recommended on an annual basis and results should be correlated with mammographic findings. MG 3D Screening Mammo W/Cad Bilateral CC and MLO view(s) were taken. Prior study comparison: December 11, 2013, bilateral digital screening mammo w/CAD. April 10, 2010, bilateral digital screening mammogram. There are scattered fibroglandular densities. Previous mammotome biopsy in the right breast. There is chronic nodularity in the left breast. Mole far posterior medial right breast. No significant changes when compared with prior studies. ASSESSMENT: Incomplete: need additional imaging evaluation, BI-RAD 0 RECOMMENDATION: Ultrasound of the right breast. (targeted to lump) [facility] will attempt to contact patient to return for ultrasound.
== END | disposition home or self-care (01) ==
LOC: RADMAMWWP 14:50
PROVIDERS: ATTEND Family Medicine
DX: Z12.31 Encounter for screening mammogram for malignant neoplasm of breast (principal)
CPT/HCPCS: 77063; 77067

== ENCOUNTER → 2020-01-23 | Outpatient (CLI) | payer MEDICARE ==
--- NOTE | 2020-01-23 15:41 | BD ---
EXAMINATION TYPE: Axial Bone Density DATE OF EXAM: 01/23/2020 COMPARISON: 12/11/2013 CLINICAL HISTORY: Height: 64.5 IN Weight: 186 LBS FRAX RISK QUESTIONS: History of Fracture in Adulthood: YES RT WRIST AGE 73 RISK FACTORS HISTORY OF: History of Wrist Fracture: YES RT WRIST When: AGE 73 Surgery to Wrist (right): YES AGE 73 Active: YES Postmenopausal woman: AGE 51 Take estrogen and/or progesterone medications: TOOK OTC RUB ON HORMONES. HAPPY PMS FOR APPROX 5 YEAR S MEDICATIONS: Thyroid Medications: YES Which medication: ARMOUR THYROID How Lon+ YEARS Additional Medications: VIT D, ARMOUR THYROID, RESTASIS FOR EYES, BLOOD THINNER, LEXAPRO, XANAX EXAM MEASUREMENTS: Bone mineral densitometry was performed using the [employer] System. Bone mineral density as measured about the Lumbar spine is: ----- L1-L4(G/cm2): 0.903 T Score Values are as follows: ----- L2: -2.6 ----- L3: -2.1 ----- L4: -2.9 ----- L1-L4: -2.3 Bone mineral density has: Decreased -1.5% since study of: 12/11/2013 Bone mineral density about the R hip (g/cm2): 0.724 Bone mineral density about the L hip (g/cm2): 0.766 T Score values are as follows: -----R Neck: -2.3 -----L Neck: -2.0 -----R Total: -2.0 -----L Total: -1.8 Bone mineral density has: Decreased -8.7% since study of: 12/11/2013 IMPRESSION: Osteopenia (T Score between -2.5 and -1). There is slightly increased risk of fracture and the patient may be considered for treatment. Re-Screen 2-5 years. NOTE: T-SCORE=SD OF THE YOUNG ADULT MEAN.
== END | disposition home or self-care (01) ==
LOC: RADBDWWP 14:51
PROVIDERS: ATTEND Family Medicine
DX: M85.88 Other specified disorders of bone density and structure, other site (principal); Z78.0 Asymptomatic menopausal state
CPT/HCPCS: 77080

== ENCOUNTER → 2020-02-01 | Outpatient (CLI) | payer MEDICARE | END | disposition home or self-care (01) | DX: R92.8 Other abnormal and inconclusive findings on diagnostic imaging of breast (principal) ==

== ENCOUNTER 2020-04-09 16:36 | Inpatient (IN) | payer MEDICARE ==
[2020-04-09] MEDS ORDERED: ONDANSETRON 4 MG/2 ML VIAL IVP STA (17:01)
[2020-04-09] MEDS ORDERED: SODIUM CHLORIDE 0.9% 1,000 ML IV ONE (17:01)
--- NOTE | 2020-04-09 17:07 | ED ---
GI Bleed HPI - General Source: patient Mode of arrival: ambulatory Limitations: no limitations <Ginger Luong - Last Filed: 04/09/20 19:49> <Aziza Watson - Last Filed: 04/13/20 00:00> - General Chief complaint: GI Bleed Stated complaint: GI bleed Time Seen by Provider: 04/09/20 16:48 - History of Present Illness Initial comments: 74-year-old female presenting today for chief complaint of bleeding from rectum. Patient states approximately week ago she ate something bad and had one episode of vomiting. Patient states she has occasional cramping since then. Patient denies any diarrhea. Patient states that today she had bowel movement that a large amount of blood she states she is on anticoagulation therapy. Patient denies any chest pain shortness of breath weakness dizziness or lightheadedness. Patient denies any cold intolerance. Patient denies any previous GI bleeds. 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 Patient denies a known history of diverticulitis or diverticulosis. Patient states that the abdominal cramping that she is expe riencing today which has increased from the time she experienced approximately week ago is achy/sharp in nature coming and going in the lower abdomen diffusely. Denies any upper abdominal pain. Patient denies any hematemesis. Patient described the blood as somewhat red/dark. Patient has no other complaints. BP on the lower aspect of normal on arrival, no tachycardia. Patient does not appear toxic, nor in distress. (Ginger Luong) - Related Data Home Medications Medication Instructions Recorded Confirmed ALPRAZolam [Xanax] 0.25 mg PO HS 01/07/15 04/09/20 Escitalopram [Lexapro] 10 mg PO DAILY 01/07/15 04/09/20 Thyroid, Pork [D Lo Thyroid] 30 mg PO DAILY 01/07/15 04/09/20 cycloSPORINE 0.05% OPHTH SOLN 1 drop BOTH EYES BID 01/07/15 04/09/20 [Restasis] Apixaban [Eliquis] 5 mg PO DAILY 04/09/20 04/09/20 Cholecalciferol [Vitamin D3] 400 unit PO DAILY 04/09/20 04/09/20 Multivitamin [Multivitamins Adult 2 tab PO DAILY 04/09/20 04/09/20 Gummies] Previous Rx's Medication Instructions Recorded Pantoprazole [Protonix] 40 mg PO AC-BRKFST #30 tablet. 07/25/19 Dicyclomine [Bentyl] 10 mg PO QID PRN #40 cap 04/11/20 Ondansetron [Zofran] 4 mg PO Q8H PRN #30 tab 04/12/20 Allergies Allergy/AdvReac Type Severity Reaction Status Date / Time adhesive Allergy Unknown RED, Verified 04/09/20 18:41 IRRITATED SKIN cast lining Allergy Rash/Hives Uncoded 04/09/20 18:41 Review of Systems ROS Other: All systems not noted in ROS Statement are negative. <Ginger Luong - Last Filed: 04/09/20 19:49> ROS Other: All systems not noted in ROS Statement are negative. <Aziza Watson - Last Filed: 04/13/20 00:00> ROS Statement: Those systems with pertinent positive or pertinent negative responses have been documented in the HPI. Past Medical History Past Medical History: Asthma, Deep Vein Thrombosis (DVT), Fibromyalgia, GERD/Reflux, Hyperlipidemia, Osteoarthritis (OA), Pulmonary Embolus (PE), Thyroid Disorder Additional Past Medical History / Comment(s): HX OF SKIN CANCER, LOW BLOOD PRESSURE WITH OCCASIONAL DIZZINESS UPON STANDING, ACHALASIA OF ESOPHAGUS- Varicose veins, hx hiatal hernia,. 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 has TMJ History of Any Multi-Drug Resistant Organisms: None Reported Past Surgical History: Breast Surgery, Tubal Ligation Additional Past Surgical History / Comment(s): CYST RT BREAST, ACHALASIA OF ESOP HAGUS SURGERY ON SPHINCTER. right wrist surgery Past Anesthesia/Blood Transfusion Reactions: Previous Problems w/ Anesthesia Additional Past Anesthesia/Blood Transfusion Reaction / Comment(s): PT STATES DUE TO ACHALASIA OF ESOPHAGUS - SAID HER HEAD WOULD BE ELEVATED DURING SURGERY. needs small childrens tubes for intubation- has not had any surgery with general in a long time but had EGD at [facility](record on chart). pt states has TMJ and jaw locks, states she has a non working esophagus but a tight sphincter valve where liquids do not empty. Past Psychological History: Anxiety, Depression Smoking Status: Never smoker Past Alcohol Use History: None Reported Past Drug Use History: None Reported - Past Family History Mother Family Medical History: Deep Vein Thrombosis (DVT), Pulmonary Embolus Brother(s) Family Medical History: Deep Vein Thrombosis (DVT) <Ginger Luong - Last Filed: 04/09/20 19:49> General Exam Limitations: no limitations <Ginger Luong - Last Filed: 04/09/20 19:49> Course Vital Signs 04/09/20 04/09/20 16:42 19:20 Temperature 98.3 F Pulse Rate 71 71 Respiratory 18 18 Rate Blood Pressure 93/65 101/62 O2 Sat by Pulse 99 99 Oximetry Medical Decision Making - Lab Data Result diagrams: 04/09/20 17:09 04/09/20 17:09 <Ginger Luong - Last Filed: 04/09/20 19:49> - Lab Data Result diagrams: 04/12/20 10:07 04/11/20 07:15 <Aziza Watson - Last Filed: 04/13/20 00:00> - Medical Decision Making 74-year-old female presenting today for chief complaint of blood in stool a bdominal cramping. Patient is found have colitis versus diverticulitis on a computed tomography scan given patient's acute symptoms with no past medical history of irritable bowel disease at this could an infectious colitis-patient states that she felt like she ate something bad earlier in the week ([place]). The patient is on all across and did have gross blood in stool. She has history of hypertension and is on the borderline of normal blood pressure given her age coagulation status and rectal examination I feel inpatient monitoring is appropriate at this time. GI will be on consultation patient was given IV fluids type and screen has resulted repeat CBC and keep patient on telemetry. Protonix initiated in ER as well as zosyn. Patient remains as hold in the ER however accepting admitting provider will provider further care management and is aware of patient. (Ginger Luong) I was available for consultation in the emergency department. The history and p hysical exam were done by the midlevel provider. I was consulted for this patients care. I reviewed the case with the midlevel provider and based on their presentation of the patient, I agree with the assessment, medical decision making and plan of care as documented. Chart was dictated using [employer] dictation software. Attempts were made to correct any dictation errors however some typographical errors may persist. Patient was seen during a national state of emergency due to the Covid-19 yoel britton. (Aziza Watson) - Lab Data Lab Results 04/09/20 04/09/20 04/09/20 Range/Units 17:09 17:09 17:09 WBC 12.0 H (3.8-10.6) k/uL RBC 4.85 (3.80-5.40) m/uL Hgb 13.3 (11.4-16.0) gm/dL Hct 42.2 (34.0-46.0) % MCV 87.0 (80.0-100.0) fL MCH 27.5 (25.0-35.0) pg MCHC 31.5 (31.0-37.0) g/dL RDW 13.3 (11.5-15.5) % Plt Count 350 (150-450) k/uL Neutrophils % 80 % Neutrophils % (Manual) % Lymphocytes % 11 % Lymphocytes % (Manual) % Monocytes % 6 % Monocytes % (Manual) % Eosinophils % 1 % Eosinophils % (Manual) % Basophils % 0 % Neutrophils # 9.6 H (1.3-7.7) k/uL Neutrophils # (Manual) (1.3-7.7) k/uL Lymphocytes # 1.3 (1.0-4.8) k/uL Lymphocytes # (Manual) (1.0-4.8) k/uL Monocytes # 0.7 (0-1.0) k/uL Monocytes # (Manual) (0-1.0) k/uL Eosinophils # 0.2 (0-0.7) k/uL Eosinophils # (Manual) (0-0.7) k/uL Basophils # 0.0 (0-0.2) k/uL Metamyelocytes # (Man) (0) k/uL Nucleated RBCs (0-0) /100 WBC Manual Slide Review Hypochromasia APTT 26.2 (22.0-30.0) sec Sodium 139 (137-145) mmol/L Potassium 4.1 (3.5-5.1) mmol/L Chloride 104 (98-107) mmol/L Carbon Dioxide 27 (22-30) mmol/L Anion Gap 8 mmol/L BUN 27 H (7-17) mg/dL Creatinine 0.85 (0.52-1.04) mg/dL Est GFR (CKD-EPI)AfAm 79 (>60 ml/min/1.73 sqM) Est GFR (CKD-EPI)NonAf 68 (>60 ml/min/1.73 sqM) Glucose 115 H (74-99) mg/dL Plasma Lactic Acid Thanh (0.7-2.0) mmol/L Calcium 10.1 (8.4-10.2) mg/dL Total Bilirubin 0.4 (0.2-1.3) mg/dL AST 23 (14-36) U/L ALT 12 (4-34) U/L Alkaline Phosphatase 119 (38-126) U/L Troponin I (0.000-0.034) ng/mL Total Protein 6.8 (6.3-8.2) g/dL Albumin 4.1 (3.5-5.0) g/dL Coronavirus (PCR) (Not Detected) Blood Type Blood Type Recheck Bld Type Recheck Status Antibody Screen Spec Expiration Date 04/09/20 04/09/20 04/09/20 Range/Units 17:09 17:09 17:09 WBC (3.8-10.6) k/uL RBC (3.80-5.40) m/uL Hgb (11.4-16.0) gm/dL Hct (34.0-46.0) % MCV (80.0-100.0) fL MCH (25.0-35.0) pg MCHC (31.0-37.0) g/dL RDW (11.5-15.5) % Plt Count (150-450) k/uL Neutrophils % % Neutrophils % (Manual) % Lymphocytes % % Lymphocytes % (Manual) % Monocytes % % Monocytes % (Manual) % Eosinophils % % Eosinophils % (Manual) % Basophils % % Neutrophils # (1.3-7.7) k/uL Neutrophils # (Manual) (1.3-7.7) k/uL Lymphocytes # (1.0-4.8) k/uL Lymphocytes # (Manual) (1.0-4.8) k/uL Monocytes # (0-1.0) k/uL Monocytes # (Manual) (0-1.0) k/uL Eosinophils # (0-0.7) k/uL Eosinophils # (Manual) (0-0.7) k/uL Basophils # (0-0.2) k/uL Metamyelocytes # (Man) (0) k/uL Nucleated RBCs (0-0) /100 WBC Manual Slide Review Hypochromasia APTT (22.0-30.0) sec Sodium (137-145) mmol/L Potassium (3.5-5.1) mmol/L Chloride (98-107) mmol/L Carbon Dioxide (22-30) mmol/L Anion Gap mmol/L BUN (7-17) mg/dL Creatinine (0.52-1.04) mg/dL Est GFR (CKD-EPI)AfAm (>60 ml/min/1.73 sqM) Est GFR (CKD-EPI)NonAf (>60 ml/min/1.73 sqM) Glucose (74-99) mg/dL Plasma Lactic Acid Thanh 1.3 (0.7-2.0) mmol/L Calcium (8.4-10.2) mg/dL Total Bilirubin (0.2-1.3) mg/dL AST (14-36) U/L ALT (4-34) U/L Alkaline Phosphatase (38-126) U/L Troponin I <0.012 (0.000-0.034) ng/mL Total Protein (6.3-8.2) g/dL Albumin (3.5-5.0) g/dL Coronavirus (PCR) (Not Detected) Blood Type A Positive Blood Type Recheck A Pos Bld Type Recheck Status No Antibody Screen NEGATIVE Spec Expiration Date 04/12/2020230804/09/20 04/11/20 04/11/20 Range/Units 19:49 07:15 07:15 WBC 9.6 (3.8-10.6) k/uL RBC 4.36 (3.80-5.40) m/uL Hgb 12.3 (11.4-16.0) gm/dL Hct 39.3 (34.0-46.0) % MCV 90.2 (80.0-100.0) fL MCH 28.3 (25.0-35.0) pg MCHC 31.4 (31.0-37.0) g/dL RDW 13.7 (11.5-15.5) % Plt Count 272 (150-450) k/uL Neutrophils % % Neutrophils % (Manual) 77 % Lymphocytes % % Lymphocytes % (Manual) 8 % Monocytes % % Monocytes % (Manual) 10 % Eosinophils % % Eosinophils % (Manual) 4 % Basophils % % Neutrophils # (1.3-7.7) k/uL Neutrophils # (Manual) 7.39 (1.3-7.7) k/uL Lymphocytes # (1.0-4.8) k/uL Lymphocytes # (Manual) 0.77 L (1.0-4.8) k/uL Monocytes # (0-1.0) k/uL Monocytes # (Manual) 0.96 (0-1.0) k/uL Eosinophils # (0-0.7) k/uL Eosinophils # (Manual) 0.38 (0-0.7) k/uL Basophils # (0-0.2) k/uL Metamyelocytes # (Man) 0.00 (0) k/uL Nucleated RBCs 0 (0-0) /100 WBC Manual Slide Review Performed Hypochromasia Slight APTT (22.0-30.0) sec Sodium 139 (137-145) mmol/L Potassium 4.3 (3.5-5.1) mmol/L Chloride 108 H (98-107) mmol/L Carbon Dioxide 27 (22-30) mmol/L Anion Gap 4 mmol/L BUN 14 (7-17) mg/dL Creatinine 0.82 (0.52-1.04) mg/dL Est GFR (CKD-EPI)AfAm 82 (>60 ml/min/1.73 sqM) Est GFR (CKD-EPI)NonAf 71 (>60 ml/min/1.73 sqM) Glucose 85 (74-99) mg/dL Plasma Lactic Acid Thanh (0.7-2.0) mmol/L Calcium 9.0 (8.4-10.2) mg/dL Total Bilirubin (0.2-1.3) mg/dL AST (14-36) U/L ALT (4-34) U/L Alkaline Phosphatase (38-126) U/L Troponin I (0.000-0.034) ng/mL Total Protein (6.3-8.2) g/dL Albumin (3.5-5.0) g/dL Coronavirus (PCR) Not Detected (Not Detected) Blood Type Blood Type Recheck Bld Type Recheck Status Antibody Screen Spec Expiration Date Disposition Is patient prescribed a controlled substance at d/c from ED?: No Time of Disposition: 19:02 Decision to Admit Reason: Admit from EC Decision Date: 04/09/20 Decision Time: 19:02 <Ginger Luong - Last Filed: 04/09/20 19:49> <Aziza Watson - Last Filed: 04/13/20 00:00> Clinical Impression: GI bleed Disposition: ADMITTED IP TO THIS [facility] Condition: Stable
[2020-04-09] MEDS: SODIUM CHLORIDE 0.9% 1,000 ML IV SCH (17:17)
[2020-04-09 17:19] LABS: Basophils % (A) 0 %; Eosinophils # (A) 0.2 k/uL (0-0.7); Eosinophils % (A) 1 %; HCT 42.2 % (34.0-46.0); HGB 13.3 gm/dL (11.4-16.0); Lymphocytes # (A) 1.3 k/uL (1.0-4.8); Lymphocytes % (A) 11 %; MCH 27.5 pg (25.0-35.0); MCHC 31.5 g/dL (31.0-37.0); Mean Platelet Volume 7.4; Monocytes # (A) 0.7 k/uL (0-1.0); Monocytes % (A) 6 %; Neutrophils # (A) 9.6 k/uL (1.3-7.7); Neutrophils % (A) 80 %; Platelet Count 350 k/uL (150-450); RBC 4.85 m/uL (3.80-5.40); RDW 13.3 % (11.5-15.5)
[2020-04-09 17:29] LABS: Albumin 4.1 g/dL (3.5-5.0); Calcium 10.1 mg/dL (8.4-10.2); Potassium 4.1 mmol/L (3.5-5.1); Total Bilirubin 0.4 mg/dL (0.2-1.3); Total Protein 6.8 g/dL (6.3-8.2)
[2020-04-09] MEDS ORDERED: NALOXONE 0.4 MG/ML 1 ML VIAL IV PRN (19:00)
[2020-04-09] MEDS ORDERED: PANTOPRAZOLE 40 MG/10 ML VIAL IVP STA (19:01)
--- NOTE | 2020-04-09 19:11 | CT ---
EXAMINATION TYPE: CT abdomen pelvis w con DATE OF EXAM: 04/09/2020 HISTORY: rectal bleeding and diarrhea CT DLP: 1427.6mGycm Automated Exposure Control for Dose Reduction was Utilized. CONTRAST: CT scan of the abdomen and pelvis is performed without oral but with IV Contrast, patient injected wi th 100 mL of Isovue 300. COMPARISON: CT abdomen and pelvis July 21, 2017 FINDINGS: LUNG BASES: No significant abnormality is appreciated. LIVER/GB: Persistent low dense appearance of the liver relative to spleen suggesting diffuse fatty in filtration. PANCREAS: No significant abnormality is seen. SPLEEN: No significant abnormality is seen. ADRENALS: No significant abnormality is seen. KIDNEYS: Simple appearing parapelvic cysts bilaterally in both kidneys. Symmetric cortical medullary uptake and excretion without hydronephrosis seen bilaterally. BOWEL: Persistent dilated debris filled distal esophagus with small hiatal hernia unchanged from prio r. Correlate for underlying severe achalasia. Suboptimal evaluation bowel without enteric contrast. N o suspicious small or large bowel dilatation. Moderate wall thickening involving the distal left colo n extending into the proximal to mid sigmoid colon with mild to moderate surrounding fluid and fat st randing. No pneumoperitoneum. No well-formed fluid collection or abscess. Few scattered colonic diver ticula seen in the sigmoid colon distal to this area UTERUS/ADNEXA: Anteverted uterus projecting just left of midline. Stable 4.8 x 3.1 cm right ovarian l ow dense lesion. Finding presumed benign given the three-year stability from prior. LYMPH NODES: No greater than 1cm abdominal or pelvic lymph nodes are appreciated. OSSEOUS STRUCTURES: No significant abnormality is seen. OTHER: No significant additional abnormality is seen. IMPRESSION: New mild to moderate uncomplicated acute colitis involving distal left colon and more pro minently involving the proximal to mid sigmoid colon in the left pelvis. Differential includes infect ious, inflammatory, and/or ischemic etiologies. Correlate clinically.
[2020-04-09] MEDS ORDERED: PIPERACILLIN-TAZOBACTAM 3.375 GM in SODIUM CHLORIDE 0.9% 100 ML IVPB STA (19:12)
[2020-04-10] MEDS ORDERED: ESCITALOPRAM 10 MG TAB PO STA (00:50)
[2020-04-10] MEDS: ALPRAZolam 0.5 MG TAB PO SCH ×2 (01:01→20:55)
[2020-04-10] MEDS: ESCITALOPRAM 10 MG TAB PO SCH ×3 (08:33→21:05)
[2020-04-10] MEDS: SODIUM CHLORIDE 0.9% 1,000 ML IV SCH ×2 (08:33→21:06)
[2020-04-10] MEDS: DICYCLOMINE 10 MG CAP PO PRN ×2 (12:54→21:05)
[2020-04-10] MEDS: HYDROCORTISONE SUPPOSITORY 25 MG SUPP RECTAL SCH ×2 (12:55→20:57)
--- NOTE | 2020-04-10 14:08 | P.CONS ---
History of Present Illness - Reason for Consult Consult date: 04/10/20 Blood per rectum Requesting physician: Wiley Sinha - Chief Complaint Abdominal pain, vomiting, blood per rectum - History of Present Illness 74-year-old female with multiple medical comorbidities including fibromyalgia, achalasia, internal hemorrhoids, DVT/PE, asthma, GERD, hyperlipidemia who presented to the hospital due to complaints of nausea, vomiting and blood per rectum. The patient reports symptoms started 2 weeks ago when eating out. She reports she subsequently developed nausea, vomiting and chills. She reports diffuse abdominal pain described as cramping in nature since that time. She tried to improve symptoms was seen hydrated with plenty of water intake however symptoms persisted. She denies any constipation, diarrhea or other change in bowel habits however she did notice bright red blood per rectum on occasion prior to presentation yesterday. She reports blood in the toilet and with wiping yesterday prior to presentation. No reports of blood prior to this or subsequent episodes of bleeding. On presentation hemoglobin was found to be st able at 13.3 with a WBC 12 and platelet count of 350,000. Previously she has undergone endoscopic evaluation in 07/2017 with the GI service with findings of a fluid-filled esophagus on EGD and internal hemorrhoids on colonoscopy. Computed tomography scan of the abdomen performed in evaluation showed acute colitis of the distal left colon. Review of Systems REVIEW OF SYSTEMS: CONSTITUTIONAL: Denies any fevers, chills, weight change or fatigue. CARDIOVASCULAR: Denies any chest pain, palpitations high or low blood pressures RESPIRATORY: Denies any shortness of breath, hemoptysis or cough. GENITOURINARY: No dysuria or hematuria. MUSCULOSKELETAL: No weakness reported. SKIN: Denies any new rashes or lesions, jaundice or pallor. PSYCHIATRIC: Denies any depression or anxiety. NEUROLOGY: Denies headache, denies any new focal deficits. EARS/NOSE/THROAT: No recent hearing change, congestion, nasal discharge or sore throat. EYES: No pain in eyes, discharge or change in vision. GASTROINTESTINAL: As per HPI. Past Medical History Past Medical History: Asthma, Deep Vein Thrombosis (DVT), Fibromyalgia, GERD/Reflux, Hyperlipidemia, Osteoarthritis (OA), Pulmonary Embolus (PE), Thyroid Disorder Additional Past Medical History / Comment(s): HX OF SKIN CANCER, LOW BLOOD PRESSURE WITH OCCASIONAL DIZZINESS UPON STANDING, ACHALASIA OF ESOPHAGUS- Varicose veins, hx hiatal hernia,. 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 has TMJ History of Any Multi-Drug Resistant Organisms: None Reported Past Surgical History: Breast Surgery, Tubal Ligation Additional Past Surgical History / Comment(s): CYST RT BREAST, ACHALASIA OF ESOPHAGUS SURGERY ON SPHINCTER. right wrist surgery Past Anesthesia/Blood Transfusion Reactions: Previous Problems w/ Anesthesia Additional Past Anesthesia/Blood Transfusion Reaction / Comm: PT STATES DUE TO ACHALASIA OF ESOPHAGUS - SAID HER HEAD WOULD BE ELEVATED DURING SURGERY. needs small childrens tubes for intubation- has not had any surgery with general in a long time but had EGD at [facility](record on chart). pt states has TMJ and jaw locks, states she has a non working esophagus but a tight sphincter valve where liquids do not empty. Past Psychological History: Anxiety, Depression Smoking Status: Never smoker Past Alcohol Use History: None Reported Past Drug Use History: None Reported - Past Family History Mother Family Medical History: Deep Vein Thrombosis (DVT), Pulmonary Embolus Brother(s) Family Medical History: Deep Vein Thrombosis (DVT) Medications and Allergies Home Medications Medication Instructions Recorded Confirmed Type ALPRAZolam [Xanax] 0.25 mg PO HS 01/07/15 04/09/20 History Escitalopram [Lexapro] 10 mg PO DAILY 01/07/15 04/09/20 History Thyroid, Pork [[place] Thyroid] 30 mg PO DAILY 01/07/15 04/09/20 History cycloSPORINE 0.05% OPH SOLN 1 drop BOTH EYES BID 01/07/15 04/09/20 History [Restasis] Pantoprazole [Protonix] 40 mg PO BRANDONBRKFST #30 tablet. 07/25/19 04/09/20 Rx Apixaban [Eliquis] 5 mg PO DAILY 04/09/20 04/09/20 History Cholecalciferol [Vitamin D3] 400 unit PO DAILY 04/09/20 04/09/20 History Multivitamin [Multivitamins Adult 2 tab PO DAILY 04/09/20 04/09/20 History Gummies] Ondansetron [Zofran] 4 mg PO Q8H PRN 04/09/20 04/09/20 History Allergies Allergy/AdvReac Type Severity Reaction Status Date / Time adhesive Allergy Unknown RED, Verified 04/09/20 18:41 IRRITATED SKIN cast lining Allergy Rash/Hives Uncoded 04/09/20 18:41 Physical Exam Vitals: Vital Signs Temp Pulse Pulse Resp BP BP Pulse Ox 04/10/20 11:28 16 04/10/20 08:00 98 F 62 16 88/52 96 04/10/20 04:00 98.4 F 66 18 95/64 93 L 04/10/20 00:00 99.1 F 67 18 91/57 95 04/09/20 23:16 98.1 F 72 18 107/53 97 04/09/20 20:36 98.1 F 72 18 107/52 97 04/09/20 19:20 71 18 101/62 99 04/09/20 16:42 98.3 F 71 18 93/65 99 Intake and Output 04/09/20 04/10/20 04/10/20 22:59 06:59 14:59 Other: # Voids 1 1 Weight 86.183 kg 85.1 kg On physical examination, patient appears comfortable in no apparent distress. HEAD: Normocephalic, atraumatic. EYES: No scleral icterus. No conjunctival injection. MOUTH: No lesions, tongue midline. NECK: Trachea midline, no gross abnormalities. CHEST: Clear to auscultation with no wheezing or rhonchi appreciated. HEART: S1-S2 appreciated. ABDOMEN: Soft, obese, mildly tender to palpation. Bowel sounds are positive. No organomegaly. No guarding or rigidity. EXTREMITIES: No pedal edema. SKIN: No rashes, no jaundice. NEUROLOGIC: Alert and oriented x3. No focal deficits. Results CBC & Chem 7: 04/09/20 17:09 04/09/20 17:09 Labs: Abnormal Lab Results - Last 24 Hours (Table) 04/09/20 04/09/20 Range/Units 17:09 17:09 WBC 12.0 H (3.8-10.6) k/uL Neutrophils # 9.6 H (1.3-7.7) k/uL BUN 27 H (7-17) mg/dL Glucose 115 H (74-99) mg/dL CT scan - abdomen: report reviewed (Computed tomography scan of the abdomen performed in evaluation showed acute colitis of the distal left colon.) Assessment and Plan (1) Colitis Narrative/Plan: 74-year-old female with multiple medical comorbidities who presents with complaints of 2 weeks of symptoms of nausea, vomiting, cramping abdominal pain with 1 episode of bright red blood prior to presentation. Patient's laboratory evaluation on presentation significant for a hemoglobin of 13.3 with a WBC 12 and platelet count 350,000. No further episodes of bleeding per rectum since presentation. She did have a computed tomography scan of the abdomen showing an uncomplicated colitis involving the distal left colon. Unclear etiology, may be ischemic in nature in the setting of 2 weeks of symptoms of decreased oral intake with nausea and vomiting, or infectious in nature, less likely inflammatory process. Patient is having some cramping abdominal pain in association with her symptoms. Current Visit: Yes Status: Acute Code(s): K52.9 - NONINFECTIVE GASTROENTERITIS AND COLITIS, UNSPECIFIED SNOMED Code(s): 34332432 (2) GI bleed Current Visit: Yes Status: Acute Code(s): K92.2 - GASTROINTESTINAL HEMORRHAGE, UNSPECIFIED SNOMED Code(s): 30494431 (3) Dilatation of esophagus Current Visit: Yes Status: Acute Code(s): K22.8 - OTHER SPECIFIED DISEASES OF ESOPHAGUS SNOMED Code(s): 88740766 (4) Internal hemorrhoid Current Visit: Yes Status: Acute Code(s): K64.8 - OTHER HEMORRHOIDS SNOMED Code(s): 34496013 Plan: Supportive care Clear liquid diet The Bentyl added as needed for abdominal pain Anusol added twice a day Ceftriaxone and Flagyl therapy added for treatment of colitis, suspicion for ischemic versus infectious etiology No plans for endoscopic evaluation at this time, reports from prior EGD and colonoscopy in 2017 reviewed Continue to monitor hemoglobin and hematocrit and transfuse as needed Continue IV fluid hydration Thank you for allowing us to participate in the care of the patient
--- NOTE | 2020-04-10 16:18 | P.HPIM ---
History of Present Illness H&P Date: 04/10/20 Chief Complaint: Rectal bleeding This is a 74-year-old female with medical history of PE, DVT on Eliquis ,asthma, fibromyalgia, gastroesophageal reflux disease, hyperlipidemia, degenerative joint disease, hypothyroidism, achalasia of the esophagus with multiple esophageal dilatations, presented to the ER with complaints of rectal bleeding, abdominal cramping, nausea, emesis 1, no diarrhea. Reports potentially induced by something that she ate at [employer] with subsequent cramping and nausea have been going on for about 2 weeks. Yesterday morning patient had a large bloody, dark reddish bowel movement. Hemoglobin on admission 13.3, platelets 350 BUN 27, creatinine 0.85. Afebrile, T-max 99.1, WBC 12. Denies chest pain, palpitations or shortness of breath. Maintaining O2 sats in the high 90s on room air. Systolic blood pressure mid 90s to low 100s on admission, currently ranging high 80s to mid 90s. No tachycardia. CT of abdomen and pelvis reported diffuse fatty liver, persistent dilated debris filled distal esophagus with small hiatal hernia unchanged from prior, severe achalasia, new mild to moderate uncomplicated acute colitis involving the distal left colon extending into the proximal to mid sigmoid: With mild to moderate surrounding fluid and fat stranding no pneumoperitoneum, no well formed fluid collection or abscess, few scattered colonic diverticula, stable 4.8 x 3.1 cm right ovarian low dense lesion. Review of Systems ROS Statement: Those systems with pertinent positive or pertinent negative responses have been documented in the HPI. ROS Other: All systems not noted in ROS Statement are negative. Past Medical History Past Medical History: Asthma, Deep Vein Thrombosis (DVT), Fibromyalgia, GERD/Reflux, Hyperlipidemia, Osteoarthritis (OA), Pulmonary Embolus (PE), Thyroid Disorder Additional Past Medical History / Comment(s): HX OF SKIN CANCER, LOW BLOOD PRESSURE WITH OCCASIONAL DIZZINESS UPON STANDING, ACHALASIA OF ESOPHAGUS- Varicose veins, hx hiatal hernia,. 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 has TMJ History of Any Multi-Drug Resistant Organisms: None Reported Past Surgical History: Breast Surgery, Tubal Ligation Additional Past Surgical History / Comment(s): CYST RT BREAST, ACHALASIA OF ESOPHAGUS SURGERY ON SPHINCTER. right wrist surgery Past Anesthesia/Blood Transfusion Reactions: Previous Problems w/ Anesthesia Additional Past Anesthesia/Blood Transfusion Reaction / Comment(s): PT STATES DUE TO ACHALASIA OF ESOPHAGUS -DR SAID HER HEAD WOULD BE ELEVATED DURING SURGERY. needs small childrens tubes for intubation- has not had any surgery with general in a long time but had EGD at [facility](record on chart). pt states has TMJ and jaw locks, states she has a non working esophagus but a tight sphincter valve where liquids do not empty. Past Psychological History: Anxiety, Depression Smoking Status: Never smoker Past Alcohol Use History: None Reported Past Drug Use History: None Reported - Past Family History Mother Family Medical History: Deep Vein Thrombosis (DVT), Pulmonary Embolus Brother(s) Family Medical History: Deep Vein Thrombosis (DVT) Medications and Allergies Home Medications Medication Instructions Recorded Confirmed Type ALPRAZolam [Xanax] 0.25 mg PO HS 01/07/15 04/09/20 History Escitalopram [Lexapro] 10 mg PO DAILY 01/07/15 04/09/20 History Thyroid, Pork [[place] Thyroid] 30 mg PO DAILY 01/07/15 04/09/20 History cycloSPORINE 0.05% OPHTH SOLN 1 drop BOTH EYES BID 01/07/15 04/09/20 History [Restasis] Pantoprazole [Protonix] 40 mg PO AC-BRKFST #30 tablet. 07/25/19 04/09/20 Rx Apixaban [Eliquis] 5 mg PO DAILY 04/09/20 04/09/20 History Cholecalciferol [Vitamin D3] 400 unit PO DAILY 04/09/20 04/09/20 History Multivitamin [Multivitamins Adult 2 tab PO DAILY 04/09/20 04/09/20 History Gummies] Ondansetron [Zofran] 4 mg PO Q8H PRN 04/09/20 04/09/20 History Allergies Allergy/AdvReac Type Severity Reaction Status Date / Time adhesive Allergy Unknown RED, Verified 04/09/20 18:41 IRRITATED SKIN cast lining Allergy Rash/Hives Uncoded 04/09/20 18:41 Physical Exam Vitals: Vital Signs Temp Pulse Pulse Resp BP BP Pulse Ox 04/10/20 15:16 16 04/10/20 12:00 60 16 95/52 96 04/10/20 11:28 16 04/10/20 08:00 98 F 62 16 88/52 96 04/10/20 04:00 98.4 F 66 18 95/64 93 L 04/10/20 00:00 99.1 F 67 18 91/57 95 04/09/20 23:16 98.1 F 72 18 107/53 97 04/09/20 20:36 98.1 F 72 18 107/52 97 04/09/20 19:20 71 18 101/62 99 04/09/20 16:42 98.3 F 71 18 93/65 99 Intake and Output 04/10/20 04/10/20 04/10/20 06:59 14:59 22:59 Other: # Voids 1 1 1 Weight 85.1 kg VITAL SIGNS: As above GENERAL: Sitting up in bed, no acute distress HEENT: Conjunctivae normal. eyes normal. Oral mucosa moist NECK: No JVD. No thyroid enlargement. No LNs CARDIOVASCULAR: S1, S2 regular.. No murmur RESPIRATION: Nonlabored, Breath sounds diminished in the bases. No rhonchi or crackles. No bronchial breathing. ABDOMEN: Soft, mild diffuse tenderness ,No guarding. no masses palpable. No ascites, No hepatosplenomegaly.Bowel sounds heard. LEGS: No edema, no clubbing, no tenderness PSYCHIATRY: Alert and oriented X3, mood and affect flat. NERVOUS SYSTEM: Cranial N 2-12 grossly normal. Moves all 4 limbs. No focal deficits. Strength and sensation grossly intact.. Skin:no rash Lymphatic system. No LN neck axilla. Results CBC & Chem 7: 04/09/20 17:09 04/09/20 17:09 Labs: Abnormal Lab Results - Last 24 Hours (Table) 04/09/20 04/09/20 Range/Units 17:09 17:09 WBC 12.0 H (3.8-10.6) k/uL Neutrophils # 9.6 H (1.3-7.7) k/uL BUN 27 H (7-17) mg/dL Glucose 115 H (74-99) mg/dL Thrombosis Risk Factor Assmnt - Choose All That Apply Any of the Below Risk Factors Present?: No Each Risk Factor Represents 2 Points: Age 61-74 years Thrombosis Risk Factor Assessment Total Risk Factor Score: 2 Thrombosis Risk Factor Assessment Level: Low Risk Assessment and Plan Assessment: -Acute abdominal pain, cramping accompanied by nausea vomiting with melena, possibly acute uncomplicated colitis involving distal left colon, etiology unclear- infectious, inflammatory, or ischemic, -Internal hemorrhoids, history of from prior colonoscopy -Severe achalasia -History of right leg DVT, PE on Eliquis, currently on hold -Chronic intermittent asthma -Fibromyalgia -Gastroesophageal reflux disease-hyperlipidemia -Degenerative joint disease -Hypothyroidism -Sjogren Syndrome -Logans Dystrophy -Hx of dystonia -Anxiety, depression Plan: Continue on current medication regime ,monitoring and symptomatic treatment. Anticoagulation/Eliquis on hold. Continue on IV fluid hydration, Rocephin, Flagyl. Evaluated by GI with Anusol HC, Bentyl added to med regime, no endoscopy interventions at this time with reevaluation tomorrow. Increase ambulation as tolerated. Close monitoring of hemoglobin, platelets, hematocrit with labs ordered for a.m. PPI for GI prophylaxis, thigh-high teds for DVT prophylaxis; will resume Eliquis pending GI clearance. The impression and plan of care has been dictated as directed. : I performed a history and examination of this patient, discussed the same with the dictator. I agree with the dictator's note ,documented as a scribe. Any additional findings or plans will be noted.
[2020-04-10] MEDS: PANTOPRAZOLE 40 MG TABLET PO SCH (16:58)
[2020-04-10] MEDS: metroNIDAZOLE-NS PMX 500 MG in SALINE 1 100ML.BAG IVPB SCH ×2 (16:58→22:50)
[2020-04-10] MEDS: cycloSPORINE 0.05% OPHTH 0.4 ML DROPERETTE BOTH EYES SCH (20:57)
[2020-04-10] MEDS: ONDANSETRON 4 MG TAB PO PRN (21:05)
[2020-04-11] MEDS: PANTOPRAZOLE 40 MG TABLET PO SCH (06:39)
[2020-04-11] MEDS: THYROID, PORK 30 MG TAB PO SCH (06:39)
[2020-04-11] MEDS ORDERED: PANTOPRAZOLE 40 MG TABLET PO SCH (07:30)
[2020-04-11] MEDS: metroNIDAZOLE-NS PMX 500 MG in SALINE 1 100ML.BAG IVPB SCH ×3 (08:30→23:13)
[2020-04-11 08:40] LABS: Potassium 4.3 mmol/L (3.5-5.1)
[2020-04-11 08:49] LABS: HCT 39.3 % (34.0-46.0); HGB 12.3 gm/dL (11.4-16.0); Hypochromasia Slight; MCH 28.3 pg (25.0-35.0); MCHC 31.4 g/dL (31.0-37.0); MCV 90.2 fL (80.0-100.0); Mean Platelet Volume 8.6; Platelet Count 272 k/uL (150-450); RBC 4.36 m/uL (3.80-5.40); RDW 13.7 % (11.5-15.5); WBC 9.6 k/uL (3.8-10.6)
[2020-04-11] MEDS: MULTIVITAMINS, THERA 1 EACH TAB PO SCH (09:40)
[2020-04-11] MEDS: HYDROCORTISONE SUPPOSITORY 25 MG SUPP RECTAL SCH ×2 (09:40→20:58)
[2020-04-11] MEDS: cycloSPORINE 0.05% OPHTH 0.4 ML DROPERETTE BOTH EYES SCH ×2 (09:41→20:58)
[2020-04-11] MEDS: CHOLECALCIFEROL 400 UNIT TAB PO SCH (09:41)
--- NOTE | 2020-04-11 11:11 | P.DS ---
Providers Date of admission: 04/09/20 18:51 Expected date of discharge: 04/11/20 Attending physician: Wiley Sinha Consults: 04/09/20 19:09 Consult Physician Stat Consulting Provider: Jann Alberts Reason/Comments: gi bleed Do you want consulting provider notified?: Yes Primary care physician: Wiley Sinha Hospital Course: Final Diagnoses: -Acute abdominal pain, cramping accompanied by nausea vomiting with melena, possibly acute uncomplicated colitis involving distal left colon, etiology unclear- infectious, inflammatory, or ischemic, -Internal hemorrhoids, history of from prior colonoscopy -Severe achalasia -History of right leg DVT, PE on Eliquis, currently on hold -Chronic intermittent asthma -Fibromyalgia -Gastroesophageal reflux disease-hyperlipidemia -Degenerative joint disease -Hypothyroidism -Sjogren Syndrome -Logans Dystrophy -Hx of dystonia -Anxiety, depression Hospital course:This is a 74-year-old female with medical history of PE, DVT on Eliquis ,asthma, fibromyalgia, gastroesophageal reflux disease, hyperlipidemia, degenerative joint disease, hypothyroidism, achalasia of the esophagus with multiple esophageal dilatations, presented to the ER with complaints of rectal bleeding, abdominal cramping, nausea, emesis 1, no diarrhea. Reports potentially induced by something that she ate at [employer] with subsequent cramping and nausea have been going on for about 2 weeks. Yesterday morning patient had a large bloody, dark reddish bowel movement. Hemoglobin on admission 13.3, platelets 350 BUN 27, creatinine 0.85. Afebrile, T-max 99.1, WBC 12. Denies chest pain, palpitations or shortness of breath. Maintaining O2 sats in the high 90s on room air. Systolic blood pressure mid 90s to low 100s on admission, currently ranging high 80s to mid 90s. No tachycardia. CT of abdomen and pelvis reported diffuse fatty liver, persistent dilated debris filled distal esophagus with small hiatal hernia unchanged from prior, severe achalasia, new mild to moderate uncomplicated acute colitis involving the distal left colon extending into the proximal to mid sigmoid: With mild to moderate surrounding fluid and fat stranding no pneumoperitoneum, no well formed fluid collection or abscess, few scattered colonic diverticula, stable 4.8 x 3.1 cm right ovarian low dense lesion. Significant clinical improvement. Hemoglobin remained stable, no further episodes of melena. Denies chest pain, palpitations or shortness of breath. Denies lightheadedness, dizziness or focal deficits. Patient will be discharged home today pending DC recommendations/clearance from GI. The impression and plan of care has been dictated as directed. : I performed a history and examination of this patient, discussed the same with the dictator. I agree with the dictator's note ,documented as a scribe. Any additional findings or plans will be noted. Patient Condition at Discharge: Stable Plan - Discharge Summary New Discharge Prescriptions: New Dicyclomine [Bentyl] 10 mg PO QID PRN #40 cap PRN Reason: Dyspepsia Continue Escitalopram [Lexapro] 10 mg PO DAILY ALPRAZolam [Xanax] 0.25 mg PO HS cycloSPORINE 0.05% OPHTH SOLN [Restasis] 1 drop BOTH EYES BID Thyroid, Pork [[place] Thyroid] 30 mg PO DAILY Pantoprazole [Protonix] 40 mg PO AC-BRKFST #30 tablet. Cholecalciferol [Vitamin D3] 400 unit PO DAILY Ondansetron [Zofran] 4 mg PO Q8H PRN PRN Reason: Nausea Apixaban [Eliquis] 5 mg PO DAILY Multivitamin [Multivitamins Adult Gummies] 2 tab PO DAILY Discharge Medication List ALPRAZolam [Xanax] 0.25 mg PO HS 01/07/15 [History] Escitalopram [Lexapro] 10 mg PO DAILY 01/07/15 [History] Thyroid, Pork [[place] Thyroid] 30 mg PO DAILY 01/07/15 [History] cycloSPORINE 0.05% OPHTH SOLN [Restasis] 1 drop BOTH EYES BID 01/07/15 [History] Pantoprazole [Protonix] 40 mg PO AC-BRKFST #30 tablet. 07/25/19 [Rx] Apixaban [Eliquis] 5 mg PO DAILY 04/09/20 [History] Cholecalciferol [Vitamin D3] 400 unit PO DAILY 04/09/20 [History] Multivitamin [Multivitamins Adult Gummies] 2 tab PO DAILY 04/09/20 [History] Ondansetron [Zofran] 4 mg PO Q8H PRN 04/09/20 [History] Dicyclomine [Bentyl] 10 mg PO QID PRN #40 cap 04/11/20 [Rx] Follow up Appointment(s)/Referral(s): Wiley Sinha DO [Primary Care Provider] - 1 Week Jann Alberts MD [STAFF PHYSICIAN] - 2 Weeks Ambulatory/Diagnostic Orders: Complete Blood Count w/diff [LAB.AMB] Time Frame: 3 Days, Location: None Selected Activity/Diet/Wound Care/Special Instructions: antibx if warranted as per GI
[2020-04-11 12:40] LABS: Eosinophils # (M) 0.38 k/uL (0-0.7); Lymphocytes # (M) 0.77 k/uL (1.0-4.8); Monocytes # (M) 0.96 k/uL (0-1.0); Neutrophils # (M) 7.39 k/uL (1.3-7.7); Neutrophils % (M) 77 %; Nucleated Red Blood Cells 0 /100 WBC (0-0); Total Cells Counted 300
[2020-04-11] MEDS: ONDANSETRON 4 MG TAB PO PRN ×2 (16:31→23:13)
[2020-04-11] MEDS: DICYCLOMINE 10 MG CAP PO PRN ×2 (16:31→23:13)
[2020-04-11] MEDS: SODIUM CHLORIDE 0.9% 1,000 ML IV SCH (16:37)
--- NOTE | 2020-04-11 17:01 | PN ---
PROGRESS NOTE DATE OF SERVICE: 04/11/2020 Patient is a 74-year-old pleasant white female admitted to the hospital with acute onset of lower abdominal pain, associated with nausea, vomiting, diarrhea, followed by rectal bleeding that started yesterday. She is feeling somewhat better today. She had 2 small bowel movements today with small amount of fresh blood. Abdominal pain is gradually improving. No episodes of nausea, vomiting. However, she has not consumed any liquids today. She did have a CAT scan of the abdomen and pelvis done in the emergency room that showed thickening of the colon involving the distal left colon into the proximal sigmoid colon suspicious for ischemic colitis was infection. She was empirically started on antibiotics. PHYSICAL EXAMINATION: Vital signs are stable. Blood pressure is 102/51, pulse is 77, temperature 97.3. HEENT: Examination unremarkable, conjunctivae are pink, sclerae nonicteric. Oral cavity no lesions. NECK: No JVD or lymph node enlargement. CHEST: Clear to auscultation. HEART: Regular rate and rhythm. ABDOMEN: Soft, bowel sounds are positive. Mild tenderness in the left lower quadrant and in the suprapubic area. EXTREMITIES: No pedal edema. SKIN: No rashes. NEUROLOGIC: Alert and oriented x3. No focal deficits. LABS: WBC 9.8, hemoglobin 12.3, platelets normal. Basic metabolic panel is within normal limits. IMPRESSION: 1. The patient was admitted to the hospital with the onset of lower abdominal pain followed by nausea, vomiting, and bloody diarrhea and CT scan showing thickening of the left colon, all of which is consistent with ischemic colitis, cannot rule out infectious colitis. Presently on empiric antibiotics with Flagyl and ceftriaxone. Symptoms are gradually improving. Hemoglobin stable at 13 g/dL. 2. History of esophageal achalasia. 3. History of fibromyalgia. 4. History of gastroesophageal reflux disease. RECOMMENDATIONS: 1. Continue with a clear liquid diet today. 2. Repeat CBC in the morning. 3. Increase oral intake. 4. If her hemoglobin is stable and symptoms better, she can be discharged home tomorrow with an outpatient followup in 2-3 weeks. Thank you for this consultation. MMODL / IJN: [id number] /
[2020-04-11] MEDS: ALPRAZolam 0.5 MG TAB PO SCH (20:58)
[2020-04-11] MEDS: ESCITALOPRAM 10 MG TAB PO SCH (20:58)
[2020-04-12] MEDS: SODIUM CHLORIDE 0.9% 1,000 ML IV SCH (00:53)
[2020-04-12] MEDS: THYROID, PORK 30 MG TAB PO SCH (06:17)
[2020-04-12] MEDS: PANTOPRAZOLE 40 MG TABLET PO SCH (06:17)
[2020-04-12] MEDS: cycloSPORINE 0.05% OPHTH 0.4 ML DROPERETTE BOTH EYES SCH (09:32)
[2020-04-12] MEDS: CHOLECALCIFEROL 400 UNIT TAB PO SCH (09:32)
[2020-04-12] MEDS: MULTIVITAMINS, THERA 1 EACH TAB PO SCH (09:32)
[2020-04-12] MEDS: HYDROCORTISONE SUPPOSITORY 25 MG SUPP RECTAL SCH (09:36)
[2020-04-12] MEDS: metroNIDAZOLE-NS PMX 500 MG in SALINE 1 100ML.BAG IVPB SCH (10:40)
[2020-04-12 10:56] LABS: HCT 36.6 % (34.0-46.0); HGB 11.7 gm/dL (11.4-16.0); Hypochromasia Slight; MCH 28.6 pg (25.0-35.0); MCV 89.4 fL (80.0-100.0); Mean Platelet Volume 7.9; Platelet Count 286 k/uL (150-450); RBC 4.09 m/uL (3.80-5.40); RDW 13.4 % (11.5-15.5); WBC 7.9 k/uL (3.8-10.6)
[2020-04-12 11:16] VITALS: RESP 18
--- NOTE | 2020-04-12 12:50 | PN ---
PROGRESS NOTE DATE OF SERVICE: 04/12/2020 Patient is a 74-year-old pleasant white female admitted to the hospital with acute onset of lower abdominal pain associated with nausea, vomiting, and rectal bleeding. A CT of the abdomen showed left-sided colitis. The patient is on empiric antibiotics for possible infectious colitis versus ischemic colitis. She is doing much better today. The abdominal pain is improving. She had only one bowel movement yesterday. No bleeding. Nausea, vomiting has resolved on a low-fiber diet, tolerating well. No fever, chills, or night sweats. PHYSICAL EXAMINATION: Blood pressure 119/62, pulse rate 66, temperature 98. HEENT: Examination unremarkable, conjunctivae are pink, sclerae nonicteric, oral cavity no lesions. NECK: No JVD or lymph node enlargement. CHEST: Clear to auscultation. HEART: Regular rate and rhythm. ABDOMEN: Soft, it was nondistended. Minimal tenderness in the left lower quadrant area. The rest of the abdomen was benign. Bowel sounds are positive. No organomegaly. EXTREMITIES: No pedal edema. SKIN: No rashes. NEUROLOGIC: Alert and oriented x3. No focal deficits. LABS: WBC 7.9, hemoglobin 11.7, platelets normal. Basic metabolic panel is within normal limits. CBC with hemoglobin 11.5. Normal WBC. IMPRESSION: 1. Acute onset of lower abdominal pain associated with nausea, vomiting, and rectal bleeding. All consistent with ischemic colitis/impactive colitis on empiric antibiotics, doing well. Her symptoms have resolved. Still has mild discomfort. On a soft diet, tolerating well. 2. Last colonoscopy in June of 2017 showed normal colonoscopy. RECOMMENDATION: 1. Advance diet as tolerated. 2. Discharge home today. 3. Outpatient followup in 2 weeks. 4. Low-fiber diet for one week. 5. No need for any antibiotics at the time of discharge. Thank you for this consultation. MMODL / IJN: [id number] /
[2020-04-12] MEDS: DICYCLOMINE 10 MG CAP PO PRN (14:55)
[2020-04-12 15:55] VITALS: BP 99/64; PULSE 59; TEMP 98.1
[2020-04-12] MEDS ORDERED: metroNIDAZOLE 500 MG TAB PO SCH (16:00)
== END 2020-04-12 15:03 | disposition home or self-care (01) | DRG 392 ==
LOC: EC 16:36 → 3SCARD 18:51 → OBSVTOIN 04-11 09:13
PROVIDERS: ADMIT Family Medicine; ATTEND Family Medicine
DX: K52.9 Noninfective gastroenteritis and colitis, unspecified (principal); K92.2 Gastrointestinal hemorrhage, unspecified; K22.0 Achalasia of cardia; K76.0 Fatty (change of) liver, not elsewhere classified; E03.9 Hypothyroidism, unspecified; E78.5 Hyperlipidemia, unspecified; F32.9 Major depressive disorder, single episode, unspecified; F41.9 Anxiety disorder, unspecified; K57.30 Diverticulosis of large intestine without perforation or abscess without bleeding; M26.609 Unspecified temporomandibular joint disorder, unspecified side; Z11.59 Encounter for screening for other viral diseases; I10 Essential (primary) hypertension; J45.20 Mild intermittent asthma, uncomplicated; K21.9 Gastro-esophageal reflux disease without esophagitis; K44.9 Diaphragmatic hernia without obstruction or gangrene; K64.8 Other hemorrhoids; M19.90 Unspecified osteoarthritis, unspecified site; M35.00 Sjogren syndrome, unspecified; M79.7 Fibromyalgia; I83.90 Asymptomatic varicose veins of unspecified lower extremity; Z79.01 Long term (current) use of anticoagulants; Z79.899 Other long term (current) drug therapy; Z86.718 Personal history of other venous thrombosis and embolism; Z86.711 Personal history of pulmonary embolism; Z85.828 Personal history of other malignant neoplasm of skin; Z91.048 Other nonmedicinal substance allergy status; Z98.51 Tubal ligation status; Z82.49 Family history of ischemic heart disease and other diseases of the circulatory system
CPT/HCPCS: 36415; 74177; 80048; 80053; 83605; 84484; 85025; 85027; 85730; 86850; 86900; 86901; 87635; 96361; 96365; 96375; 99284

== ENCOUNTER → 2020-07-19 | Outpatient (CLI) | payer MEDICARE ==
--- NOTE | 2020-07-19 23:02 | CT ---
CT CHEST FOR PULMONARY EMBOLISM. EXAMINATION TYPE: CT angio chest DATE OF EXAM: 07/19/2020 INDICATION: Primary thrombophilia CT DLP: 454 mGycm, Automated exposure control for dose reduction was used. CONTRAST: Patient injected with 100, wasted 34 mL of Isovue 370. COMPARISON: 04/09/2020, 07/24/2019 TECHNIQUE: CT of the chest is performed on a spiral scan at 2 mm thick sections. Study is performed with intravenous contrast timed for evaluation for pulmonary embolism. This will limit additional po rtions of the evaluation. 3-D MIP images reconstructed by the technologist are reviewed on the compu ter in the coronal and sagittal planes. FINDINGS: No persistent filling defects are evident to suggest an acute pulmonary embolism. No mediastinal or hilar adenopathy enlarged by CT criteria is evident. The ascending aorta diameter at the level of the main pulmonary artery is 2.9 cm. The main pulmonary artery diameter at the bifur cation is 2.2 cm. There is a 0.4 cm nodule at the right apex. Series 5 image 10. Debris-filled esophagus is again evident. This is extending from the thoracic inlet to the gastric ju nction. Recommend additional workup. Stenosis and neoplasm should be considered. Limited CT sections are obtained through the upper abdomen which appear unremarkable. IMPRESSIONS: 1. No suspicious changes to suggest acute pulmonary embolism. 2. 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 Consideration for E valuation of the gastroesophageal junction is recommended. Neoplasm is not excluded. 3. Punctate right apical nodule , present in 2019.
== END | disposition home or self-care (01) ==
LOC: RADCTMAIN 12:57
PROVIDERS: ATTEND Internal Medicine Hematology & Oncology
DX: R91.1 Solitary pulmonary nodule (principal)
CPT/HCPCS: 82565; 84520; 71275; 36415; Q9967

== ENCOUNTER → 2020-07-23 | Outpatient (CLI) | payer MEDICARE ==
--- NOTE | 2020-07-23 14:30 | US ---
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 SIDE PERFORMED: TECHNIQUE: The lower extremity deep venous system is examined utilizing real time linear array sonog yu with graded compression, doppler sonography and color-flow sonography. VESSELS IMAGED: External Iliac Vein (EIV) Common Femoral Vein Deep Femoral Vein Greater Saphenous Vein * Femoral Vein Popliteal Vein Small Saphenous Vein * Proximal Calf Veins (* superficial vessels) No old clot seen in right Popliteal Vein as on previous. Right Leg: Negative for DVT Left Leg: Negative for DVT Grayscale, color doppler, spectral doppler imaging performed of the deep veins of the right lower ext remity. There is normal flow, compressibility, vascular waveforms. IMPRESSION: No ultrasound evidence for acute DVT in either lower extremity on today's study. Interva l clearance of clot in the proximal right popliteal artery on recent study.
== END | disposition home or self-care (01) ==
LOC: RADUSWWP 13:30
PROVIDERS: ATTEND Internal Medicine Hematology & Oncology
DX: D68.59 Other primary thrombophilia (principal)
CPT/HCPCS: 93970

== ENCOUNTER → 2021-12-05 | Outpatient (CLI) | payer MEDICARE ==
--- NOTE | 2021-12-08 09:41 | MM ---
Reason for exam: clinical finding. Last mammogram was performed 1 year and 11 months ago. History: Patient is postmenopausal and history of other cancer. Family history of breast cancer in maternal aunt at age 70. Core biopsy of the right breast, December 03, 1998. Benign stereotactic core biopsy of the right breast, December 03, 1998. Excisional biopsy of the right breast. Took progesterone for 3 years. Physical Findings: Nurse did not find any significant physical abnormalities on exam. MG 3D Diag Mammo W/Cad ALE Bilateral CC and MLO view(s) were taken. Prior study comparison: January 18, 2020, bilateral MG 3d screening mammo w/cad. December 11, 2013, bilateral digital screening mammo w/CAD. There are scattered fibroglandular densities. Previous mammotome biopsy in the right breast. There is chronic nodularity in the left breast. Palpable correlates with calcification. No significant new findings when compared with previous films. These results were verbally communicated with the patient and result sheet given to the patient on 12/05/21. ASSESSMENT: Benign, BI-RAD 2 RECOMMENDATION: Routine screening mammogram of both breasts in 1 year.
--- NOTE | 2021-12-08 09:42 | USB ---
Reason for exam: clinical finding. History: Patient is postmenopausal and history of other cancer. Family history of breast cancer in maternal aunt at age 70. Core biopsy of the right breast, December 03, 1998. Benign stereotactic core biopsy of the right breast, December 03, 1998. Excisional biopsy of the right breast. Took progesterone for 3 years. US Breast RT Right complete breast ultrasound includes all four quadrants, the retroareolar region and axilla. Finding demonstrates a 0.9 x 0.7 x 0.8cm round, hypoechoic lesion at 12 o'clock. These results were verbally communicated with the patient and result sheet given to the patient on 12/05/21. ASSESSMENT: Benign, BI-RAD 2 RECOMMENDATION: Routine screening mammogram of both breasts in 1 year. Manage patient on a clinical basis.
== END | disposition home or self-care (01) ==
LOC: RADMAMWWP 14:05
PROVIDERS: ATTEND Obstetrics & Gynecology
DX: R92.8 Other abnormal and inconclusive findings on diagnostic imaging of breast (principal); N64.59 Other signs and symptoms in breast; Z78.0 Asymptomatic menopausal state; Z80.3 Family history of malignant neoplasm of breast
CPT/HCPCS: 77066; 76641; G0279; 77062

== ENCOUNTER → 2024-07-28 | Outpatient (CLI) | payer MEDICARE ==
--- NOTE | 2024-07-28 13:51 | XR ---
EXAMINATION TYPE: XR abdomen 2V DATE OF EXAM: 07/28/2024 COMPARISON: 02/26/2022 HISTORY: Cramping TECHNIQUE: One view abdominal series FINDINGS: The osseous structures are intact. The bowel gas pattern is nonspecific. Lung bases are clear. Dege nerative changes in the spine. Retained fecal debris throughout the colon correlated constipation. Le ft basilar scarring or atelectasis. Calcifications in the pelvis are likely vascular. Mild bilateral hip arthropathy. IMPRESSION: 1. Nonspecific abdomen. No diagnostic evidence of obstruction. Correlate for constipation.
[2024-07-28 18:13] LABS: Basophils # (A) 0.05 X 10*3/uL (0.00-0.10); Basophils % (A) 0.3 %; Eosinophils # (A) 0.23 X 10*3/uL (0.04-0.35); Eosinophils % (A) 1.5 %; HCT 43.9 % (37.2-46.3); HGB 13.4 g/dL (12.0-15.0); Lymphocytes # (A) 1.44 X 10*3/uL (0.90-5.00); Lymphocytes % (A) 9.2 %; MCH 28.2 pg (27.0-32.0); MCHC 30.5 g/dL (32.0-37.0); MCV 92.4 FL (80.0-97.0); Mean Platelet Volume 10.5 FL (9.5-12.2); Monocytes # (A) 1.48 X 10*3/uL (0.20-1.00); Monocytes % (A) 9.5 %; NRBC Per 100 WBC 0 X 10*3/uL (0.00-0.01); Neutrophils % (A) 79.2 %; Platelet Count 407 X 10*3/uL (140-440); RBC 4.75 X 10*6/uL (4.10-5.20); RDW 14.6 % (11.5-14.5); WBC 15.65 X 10*3/uL (4.50-10.00)
[2024-07-28 19:27] LABS: ALT 21 U/L (8-44); AST 36 U/L (13-35); Albumin 3.9 g/dL (3.8-4.9); Alkaline Phosphatase 117 U/L (41-126); BUN/Creat Ratio 20.27 Ratio (12.00-20.00); Blood Urea Nitrogen 22.3 mg/dL (9.0-27.0); Calcium 10.2 mg/dL (8.7-10.3); Carbon Dioxide 25.1 mmol/L (21.6-31.8); Chloride 104 mmol/L (96-109); Globulin 2.3 g/dL (1.6-3.3); Glucose 79 mg/dL (70-110); Potassium 4.8 mmol/L (3.5-5.5); Sodium 140 mmol/L (135-145); Total Bilirubin 0.2 mg/dL (0.3-1.2); Total Protein 6.2 g/dL (6.2-8.2)
== END | disposition home or self-care (01) ==
LOC: RADXRMAIN 13:08
PROVIDERS: ATTEND Internal Medicine Gastroenterology
DX: K59.00 Constipation, unspecified (principal); J98.11 Atelectasis
CPT/HCPCS: 74019; 80053; 85025

== ENCOUNTER → 2024-08-29 | Outpatient (CLI) | payer MEDICARE ==
[2024-08-29 14:59] LABS: African American GFR (CKD) 76 (>60 ml/min/1.73 sqM); Blood Urea Nitrogen 30 mg/dL (7-17); Non-African American GFR(CKD) 66 (>60 ml/min/1.73 sqM)
--- NOTE | 2024-08-29 18:09 | CT ---
EXAMINATION TYPE: CT abdomen pelvis w con DATE OF EXAM: 08/29/2024 COMPARISON: 02/26/2022 INDICATION: abdominal pain, constipation DLP: 1373.3 mGycm, Automated exposure control for dose reduction was used. CONTRAST: 100 ml mL of Isovue 370. Study performed with Oral Contrast TECHNIQUE: Axial images were obtained from above the diaphragm to the pubic rami in the axial plane a t 5 mm thick sections. Reconstructed images are reviewed on the computer in the coronal plane. FINDINGS: Limited CT sections are obtained the lung bases. The lung bases are clear. There is a moderately la rge hiatal hernia containing contrast. CT ABDOMEN: Liver: Normal Spleen: Normal Pancreas: Normal Adrenal glands: The adrenal glands are normal. Gallbladder: Normal Kidneys: No masses are evident. No hydronephrosis is present. Peripelvic cysts are present on the l eft kidney. Smaller peripelvic cysts are on the right. Delayed images were obtained through the kidn eys, which remain unremarkable. Aorta: Minimal Vascular calcification is within the aorta. Inferior vena cava: Normal. Bowel: Loops of bowel distended with oral contrast are unremarkable. There are loops of bowel lacking oral contrast limiting their evaluation. CT PELVIS: Appendix: Normal as visualized. Urinary bladder: Normal. Genitourinary structures: Uterus is normal. Adnexa has a enlarged hypodense area measuring 4.6 x 3.5 x 4.2 cm. This was present previously Osseous structures: No suspicious lytic or sclerotic lesions. IMPRESSION: 1. Moderately large hiatal hernia. 2. Stable hypodense area through the right adnexa. [facility], , 08/29/2024 6:07 PM
== END | disposition home or self-care (01) ==
LOC: RADCTMAIN 14:06
PROVIDERS: ATTEND Internal Medicine Gastroenterology
DX: K44.9 Diaphragmatic hernia without obstruction or gangrene (principal)
CPT/HCPCS: 36415; 74177; 82565; 84520

== ENCOUNTER → 2024-09-12 | Outpatient (CLI) | payer MEDICARE ==
[2024-09-12 19:12] LABS: HCT 42.1 % (37.2-46.3); MCH 27.5 pg (27.0-32.0); MCHC 30.9 g/dL (32.0-37.0); MCV 89.2 FL (80.0-97.0); NRBC Per 100 WBC 0 X 10*3/uL (0.00-0.01); Platelet Count 438 X 10*3/uL (140-440); RBC 4.72 X 10*6/uL (4.10-5.20); RDW 14.4 % (11.5-14.5); WBC 7.13 X 10*3/uL (4.50-10.00)
== END | disposition home or self-care (01) ==
LOC: LABWHC1 13:58
PROVIDERS: ATTEND Nurse Practitioner Family
DX: D72.829 Elevated white blood cell count, unspecified (principal)
CPT/HCPCS: 36415; 85027

== ENCOUNTER → 2025-03-08 | Outpatient (CLI) | payer MEDICARE ==
--- NOTE | 2025-03-09 09:28 | XR ---
EXAMINATION TYPE: XR knee 4V RT DATE OF EXAM: 03/08/2025 4:45 PM COMPARISON: 05/04/2019 CLINICAL INDICATION: Female, 79 years old with history of M25.551, M25.561; PHH, pain FINDINGS: No significant joint effusion. Severe [id number] degenerative change along the lateral as pect of the patella femoral compartment. Slight lateral patellar translation and patellar tilt as wel l. Extensor mechanism appears intact. No acute fracture or dislocation. IMPRESSION: Fairly severe degenerative change along the lateral facets of the patellofemoral compartment with bon e-on-bone appearance on the merchants view. Progressed from 2019. No acute osseous abnormality seen. [facility], , 03/09/2025 9:26 AM
--- NOTE | 2025-03-09 09:30 | XR ---
EXAMINATION TYPE: XR Hip Complete 2 views RT, XR tibia fibula 2 views RT DATE OF EXAM: 03/08/2025 4:45 PM COMPARISON: None CLINICAL INDICATION: Female, 79 years old with history of M25.551, M25.561; PHH, pain after fall FINDINGS: Right hip: Osteopenia without any displaced fracture. There is mild degenerative spurring at the right hip. Tibia/fibula: Mild generalized soft tissue swelling. There may be under Varicose veins. Ankle articulation appears grossly intact. No acute fracture seen. IMPRESSION: 1. Right hip: Mild degenerative spurring. Osteopenia but without acute osseous abnormalities seen. 2. Right tibia/fibula: Either mild generalized soft tissue swelling or underlying varicose veins. No acute osseous abnormality seen. [facility], , 03/09/2025 9:27 AM
== END | disposition home or self-care (01) ==
LOC: RADXRMAIN 16:07
PROVIDERS: ATTEND Physician Assistant
DX: M17.11 Unilateral primary osteoarthritis, right knee (principal); M85.851 Other specified disorders of bone density and structure, right thigh; M16.11 Unilateral primary osteoarthritis, right hip
CPT/HCPCS: 73502